=== PATIENT | female | born 1965 | race Caucasian/White ===

== ENCOUNTER 2019-01-30 07:23 | Outpatient (CLI) | payer MEDICAID, SELFPAY ==
[2019-01-30 08:09] LABS: HCT 42.3 % (36.0-46.0); HGB 14.5 g/dL (12.0-15.5); Mean Corp. HGB Concentration 34.3 g/dL (32.0-36.0); Mean Corpuscular Hemoglobin 32.6 pg (27.0-33.0); Mean Corpuscular Volume 95.1 fL (80-95); Mean Platelet Volume 9.3 fL (8.0-11.0); Platelet Count 300 x1000/uL (130-400); RBC 4.45 m/cumm (4.00-5.20); RBC Distribution Width 12.8 % (11.7-14.6); White Blood Cell Count 8.57 k/cumm (4.4-10.8)
[2019-01-30 09:37] LABS: ALT 49 U/L (12-78); AST 22 U/L (15-37); Albumin 3.8 g/dL (3.4-5.0); Alkaline Phosphatase 77 U/L (46-116); Anion Gap 9.4 mmol/L (3-11); BUN 17 mg/dL (7-18); Bilirubin, Total 0.4 mg/dL (0.2-1.0); CO2 28.6 mmol/L (21.0-32.0); CREATININE 0.85 mg/dL (0.55-1.02); Calcium 9.2 mg/dL (8.5-10.1); Chloride 101 mmol/L (98-107); Glucose 121 mg/dL (70-100); Sodium 139 mmol/L (136-145); TSH (W/Ref FT4) 6.96 uIU/mL (0.358-3.74); Total Protein 7.1 g/dL (6.4-8.2)
[2019-01-30 09:56] LABS: FREE T4 1.07 ng/dL (0.76-1.46)
[2019-02-02 10:30] LABS: FSH 14.7 mIU/ml; LH 15.5 mIU/ml
== END 2019-01-30 07:43 ==
PROVIDERS: PCP Family Medicine; Visit Provider Family Medicine
DX: E03.9 Hypothyroidism, unspecified (principal); I10 Essential (primary) hypertension; N93.8 Other specified abnormal uterine and vaginal bleeding; Z00.00 Encounter for general adult medical examination without abnormal findings
CPT/HCPCS: 36415; 80053; 85027; 83001; 83002; 84439; 84443

== ENCOUNTER 2019-03-18 17:01 | Outpatient (CLI) | payer MEDICAID, SELFPAY ==
--- NOTE | 2019-03-18 16:13 | DI.RAD_ITS ---
SYMPTOM/DIAGNOSIS: PAIN TOE LT FOOT, M79.675 LEFT FOOT: The bony structures are normally mineralized. There are apparent flexion deformities of the second through fourth toes. There are moderate interphalangeal degenerative changes. Mild DJD involving the first metatarsal phalangeal joint is noted. A calcaneal spur is identified. There is no evidence of a fracture or dislocation. RIGHT FOOT: The bony structures are normally mineralized. There are mild degenerative changes involving the first metatarsal phalangeal joint. Note is made of a small calcaneal spur. There is no evidence of a fracture or dislocation.
== END 2019-03-18 17:21 ==
PROVIDERS: PCP Family Medicine; Visit Provider Podiatrist Foot & Ankle Surgery
DX: M79.675 Pain in left toe(s) (principal); M79.671 Pain in right foot; M79.672 Pain in left foot; M19.071 Primary osteoarthritis, right ankle and foot; M77.31 Calcaneal spur, right foot; M19.072 Primary osteoarthritis, left ankle and foot; M77.32 Calcaneal spur, left foot
CPT/HCPCS: 73630

== ENCOUNTER 2019-04-03 20:44 | Emergency (ER) | payer MEDICAID, SELFPAY ==
[2019-04-03 20:51] VITALS: BP 160/96; PULSE 86; RESP 20; TEMP 36.7; O2SAT 96
--- NOTE | 2019-04-03 20:59 | ED.GENADUL_ITS ---
Discharge Plan Disposition Patient Disposition: HOME Condition: Stable Discharge Details Chief Complaint: DentalOral Clinical Impression: Dental infection Primary Care Provider: Hanna Mcneill ED Provider: Zachary Montesinos Home Meds and New Rx's Prescriptions: New clindamycin HCl 150 mg capsule 450 mg PO TID 7 Days Qty: 63 RF: 0 Continued cephalexin 500 mg capsule 500 mg PO DAILY RF: 0 ibuprofen 800 mg tablet 800 mg PO BID Qty: 60 RF: 2 verapamil 120 MG tablet extended release 120 mg PO DAILY Qty: 90 RF: 12 levothyroxine 200 MCG tablet 200 mcg PO DAILY Qty: 90 RF: 12 cyanocobalamin (vitamin B-12) [Vitamin B-12] 100 MCG tablet 100 mcg PO DAILY Qty: 90 RF: 11 furosemide 20 mg tablet 20 mg PO DAILY PRN (Reason: edema) Qty: 90 RF: 0 levothyroxine 25 mcg capsule 25 mcg PO DAILY Qty: 90 RF: 4 acetaminophen 500 MG tablet 1,000 mg PO BID PRNRF: 0 losartan 25 mg Tablet PO DAILY RF: 0 Discharge Instructions Instructions: Toothache (ED) Additional Instructions: follow up with the dentist of your choice you can take 1000mg tylenol and 600mg ibuprofen every 6 horus as needed for pain if you have difficulty breathing or inability to swallow liquids return to the emergency department Medical Decision Making 53 yo female who has hx of a right broken mid molar tooth on the lower jaw comes in with pain in this tooth since tonight. Denies fever,s difficulty breathing or swalling. She is in no distresson exam and has severe erosion of above stated tooth with pain with palpation, no visible abscess. No submandibular swelling pain over hyoid or other findings to suggest ludwigs, epilgotiits or rpa at this time, advised f/u with dentist and return precautions given. Will also start on abx Differential Diagnosis abscess, pupitis HPI General Mode of arrival: ambulatory . Date/Time Provider Initiated Documentation: 04/03/19 20:46 . Limitations to Documentation: no limitations . Information obtained by: patient . History of Present Illness 53 year old F presents to the emergency department with the chief complaint of tooth pain, described as moderate, Quality is described as aching, and is localized to the mouth. Patient reports no radiation. Patient started experiencing this hour(s) (3) and it has been constant. No relieving factors improve symptom(s), No exacerbating factors reported . Patient notes no other symptoms.. Patient did receive the following treatments prior to arrival, none Related Data Home Medications Medication Instructions Recorded Confirmed acetaminophen 1,000 mg PO BID PRN 09/02/16 04/03/19 levothyroxine 200 mcg PO DAILY #90 tab-cap 04/09/18 04/03/19 verapamil 120 mg PO DAILY #90 tab-cap 04/09/18 04/03/19 cyanocobalamin (vitamin B-12) 100 mcg PO DAILY #90 tab 04/28/18 04/03/19 [Vitamin B-12] furosemide 20 mg tablet 20 mg PO DAILY PRN #90 tab-cap 10/07/18 04/03/19 cephalexin 500 mg capsule 500 mg PO DAILY cap 11/24/18 04/03/19 levothyroxine 25 mcg capsule 25 mcg PO DAILY #90 cap 02/05/19 04/03/19 ibuprofen 800 mg tablet 800 mg PO BID #60 tab 03/09/19 04/03/19 clindamycin HCl 450 mg PO TID 7 Days #63 cap 04/03/19 losartan mg PO DAILY 04/03/19 Previous Rx's Medication Instructions Recorded levothyroxine 200 mcg PO DAILY #90 tab-cap 04/09/18 verapamil 120 mg PO DAILY #90 tab-cap 04/09/18 cyanocobalamin (vitamin B-12) 100 mcg PO DAILY #90 tab 04/28/18 [Vitamin B-12] furosemide 20 mg tablet 20 mg PO DAILY PRN #90 tab-cap 10/07/18 levothyroxine 25 mcg capsule 25 mcg PO DAILY #90 cap 02/05/19 ibuprofen 800 mg tablet 800 mg PO BID #60 tab 03/09/19 clindamycin HCl 450 mg PO TID 7 Days #63 cap 04/03/19 Allergies Allergy/AdvReac Type Severity Reaction Status Date / Time varenicline Allergy Intermediate SKIN RASH Verified 04/03/19 20:53 amlodipine AdvReac Mild edema Verified 04/03/19 20:53 Penicillins AdvReac Other (See Verified 04/03/19 20:53 Comment) General Stated Complaint: DentalOral SARAY: 4 Review of Systems Review of Systems All systems reviewed & are unremarkable except as noted in HPI and below Constitutional Denies chills and Denies fever(s) ENT Denies change in voice Cardiovascular Denies chest pain and Denies dyspnea Respiratory Denies cough and Denies dyspnea Gastrointestinal Denies abdominal pain, Denies nausea and Denies vomiting Integumentary/Breasts Denies rash [facility] Medical History 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) Depressive disorder (Chronic 05/09/10) Essential hypertension (Chronic 11/13/13) Foot pain, bilateral (Chronic 11/04/17) Gout (Chronic 09/14/14) Hypothyroidism (Chronic 08/13/13) 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) Pilonidal cyst (Chronic 01/21/18) Plantar fascia syndrome (Chronic 05/03/16) Primary malignant neoplasm of thyroid gland (Chronic 08/13/13) Smoker (Chronic) Tinea corporis (Chronic 07/14/15) Vaginal atrophy (Chronic 11/04/17) Abdominal pain, left upper quadrant (Resolved) Annual physical exam (Resolved 09/06/15) Cellulitis of left lower leg (Resolved) Dysfunctional uterine bleeding (Resolved) Herpes simplex (Resolved) Herpes zoster (Resolved 03/19/13) Ingrown toenail (Resolved) Left hip pain (Resolved) Onychomycosis (Resolved) Papillary thyroid carcinoma (Resolved) Rash of unknown cause (Resolved) Essential hypertension Malignant neoplasm of thyroid gland Smoker Surgical History H/O eye surgery (Resolved) H/O surgical procedure (Resolved) EYE Excision, Pilonidal Cyst (02/20/18) Lobectomy (~08/2007) Family History Mother Diabetes Essential hypertension Heart disease Father Diabetes Essential hypertension Heart disease Hyperlipidemia Sister Diabetes Brother Diabetes Essential hypertension Brother Diabetes Essential hypertension Social History Smoking/Tobacco Use Status: Current every day Tobacco Type: cigarettes Second Hand Exposure: Yes Alcohol Intake: current Alcohol Intake frequency: a few times a month Alcohol type: hard liquor Drug use: Never Substance use type: does not use Household members: family Pets and animals: Yes Pets and animals: dog(s) Sexually active: Yes Current gender identity: female What is your relationship status?: living with partner How often do you talk on the phone with friends or family?: once per week How often do you get together with friends or relatives?: once per week How often do you attend mu-ism or taoism services?: decline to answer Do you belong to any clubs or organized social groups?: yes Panel score (0-1 are the most socially isolated patients): 2 Duration: 30-45 minutes/day Binta/Yarsanism: None Special binta needs: No Do you feel safe at home: Yes Do you feel safe in your relationship?: Yes Exam Const General: no acute distress Orientation: alert HENMT Head: normal to inspection Ears: external ears normal General nose exam: external nose normal Mouth: moist mucous membranes Eyes General: appearance normal, both eyes and all related structures Neck Neck: normal visual inspection Resp Effort & Inspection: normal respiratory effort and able to speak in complete sentences Cardio Rate: regular rate Skin General skin exam: no rashes or lesions noted Neuro General: alert and oriented x3 Extrem General: normal to inspection Psych Mental Status: mental status grossly normal Course Vital Signs Temperature 36.7 C 04/03/19 20:51 Pulse 86 04/03/19 20:51 Respiratory Rate 04/03/19 20:51 Blood Pressure 160/96 H 04/03/19 20:51 Pulse Oximetry 96 04/03/19 20:51 Temperature 36.7 C 04/03/19 20:51 Temperature Source Temporal Artery Scan 04/03/19 20:51 Pulse 86 04/03/19 20:51 Respiratory Rate 04/03/19 20:51 Respiratory Effort Non-Labored 04/03/19 20:51 Blood Pressure 160/96 H 04/03/19 20:51 Blood Pressure Position Sitting 04/03/19 20:51 Pulse Oximetry 96 04/03/19 20:51 Oxygen Delivery Method Room Air 04/03/19 20:51 Oxygen Flow Rate 0 04/03/19 20:51 Pain Level 04/03/19 20:51
[2019-04-03 21:11] VITALS: BP 160/96; PULSE 86; RESP 20; TEMP 36.7; O2SAT 96
[2019-04-03] MEDS: Clindamycin 150 MG CAP 450 MG PO (21:11)
== END 2019-04-03 21:11 | disposition home or self-care (01) ==
PROVIDERS: Emergency Provider Emergency Medicine; PCP Family Medicine
DX: K04.7 Periapical abscess without sinus (principal)
CPT/HCPCS: 99283

== ENCOUNTER 2019-07-16 02:14 | Emergency (ER) | payer MEDICAID, SELFPAY ==
[2019-07-16 02:19] VITALS: BP 218/93; PULSE 77; RESP 20; TEMP 36.8; O2SAT 99
--- NOTE | 2019-07-16 02:20 | W.ED.GENAD ---
Discharge Plan Disposition Patient Disposition: HOME Condition: Good Discharge Details Chief Complaint: DentalOral Clinical Impression: Dental infection, Essential hypertension Primary Care Provider: Hanna Mcneill ED Provider: Jacky Alves [place] Meds and New Rx's Prescriptions: New clindamycin HCl [Cleocin HCl] 150 mg capsule 450 mg PO TID Qty: 63 RF: 0 benzocaine 20 % gel 1 applic MM QID PRN (Reason: dental pain) Qty: 30 RF: 0 Continued cephalexin 500 mg capsule 500 mg PO DAILY RF: 0 ibuprofen 800 mg tablet 800 mg PO BID Qty: 60 RF: 2 diazepam 10 mg tablet 10 mg PO DAILY PRN (Reason: anxiety) Qty: 20 RF: 0 furosemide 20 mg tablet 20 mg PO DAILY PRN (Reason: edema) Qty: 90 RF: 0 levothyroxine 25 mcg capsule 25 mcg PO DAILY Qty: 90 RF: 4 verapamil 120 mg tablet extended release 120 mg PO DAILY Qty: 90 RF: 12 levothyroxine 200 mcg tablet 200 mcg PO DAILY Qty: 90 RF: 12 acetaminophen 500 MG tablet 1,000 mg PO BID PRNRF: 0 losartan 25 mg Tablet 25 mg PO DAILY RF: 0 Discharge Instructions Additional Instructions: Alternate ibuprofen and acetaminophen for pain. Use the benzocaine gel for any residual pain. Take antibiotic as directed. Contact your dentist for follow-up. Return to ED for fevers, increasing face pain and swelling, difficulty breathing, inability to swallow. Blood pressure is quite elevated tonight. Please monitor at home and follow-up with primary care if continues to be high. Return to ED for any chest pain, shortness of breath, neurologic changes. Referrals: Hanna Mcneill [place], [place] [Primary Care Provider] - Medical Decision Making Patient likely with recurrent dental infection. We will restart her on clindamycin which worked up previously. She will use ibuprofen and acetaminophen in alternating fashion. Will give 20% benzocaine to apply to the gum area every 3-4 hours. She will need to follow-up with her dentist. Blood pressure quite elevated here. Will need to monitor at home and continue medications and if remains high follow-up with primary care. Medical Records Medical records reviewed: Yes I reviewed the patient's medical records. HPI General Mode of arrival: ambulatory. Date/Time Provider Initiated Documentation: 08/22/19 02:19. Limitations to Documentation: no limitations. Information obtained by: patient, RN notes reviewed and old records reviewed. HPI Narrative: Patient presents to ED with right lower jaw pain from fractured/decayed tooth. She missed an appointment with her dentist recently. She was seen here in March for similar problem. Pain and swelling has returned. No fever. No difficulty breathing. No difficulty swallowing. Related Data Home Medications Medication Instructions Recorded Confirmed acetaminophen 1,000 mg PO BID PRN 09/02/16 05/26/19 furosemide 20 mg tablet 20 mg PO DAILY PRN #90 tab-cap 10/07/18 07/16/19 cephalexin 500 mg capsule 500 mg PO DAILY cap 11/24/18 07/16/19 levothyroxine 25 mcg capsule 25 mcg PO DAILY #90 cap 02/05/19 07/16/19 ibuprofen 800 mg tablet 800 mg PO BID #60 tab 03/09/19 07/16/19 losartan 25 mg PO DAILY 04/03/19 07/16/19 levothyroxine 200 mcg tablet 200 mcg PO DAILY #90 tab-cap 04/15/19 07/16/19 verapamil 120 mg tablet,extended 120 mg PO DAILY #90 tab-cap 04/15/19 07/16/19 release diazepam 10 mg tablet 10 mg PO DAILY PRN #20 tab 05/26/19 07/16/19 benzocaine 1 applic MM QID PRN #30 gm 07/16/19 clindamycin HCl [Cleocin HCl] 450 mg PO TID #63 cap 07/16/19 Previous Rx's Medication Instructions Recorded furosemide 20 mg tablet 20 mg PO DAILY PRN #90 tab-cap 10/07/18 levothyroxine 25 mcg capsule 25 mcg PO DAILY #90 cap 02/05/19 ibuprofen 800 mg tablet 800 mg PO BID #60 tab 03/09/19 levothyroxine 200 mcg tablet 200 mcg PO DAILY #90 tab-cap 04/15/19 verapamil 120 mg tablet,extended 120 mg PO DAILY #90 tab-cap 04/15/19 release diazepam 10 mg tablet 10 mg PO DAILY PRN #20 tab 05/26/19 benzocaine 1 applic MM QID PRN #30 gm 07/16/19 clindamycin HCl [Cleocin HCl] 450 mg PO TID #63 cap 07/16/19 Allergies Allergy/AdvReac Type Severity Reaction Status Date / Time varenicline Allergy Intermediate SKIN RASH Verified 07/16/19 02:23 amlodipine AdvReac Mild edema Verified 07/16/19 02:23 Penicillins AdvReac Other (See Verified 07/16/19 02:23 Comment) General SARAY: 4 Review of Systems Constitutional Denies chills and Denies fever(s) Cardiovascular Denies dyspnea Respiratory Denies dyspnea PFSH Medical History Abdominal pain, left upper quadrant (Resolved) Annual physical exam (Resolved 09/06/15) Cellulitis of left lower leg (Resolved) 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) Depressive disorder (Chronic 05/09/10) Dysfunctional uterine bleeding (Resolved) Essential hypertension (Chronic 11/13/13) Foot pain, bilateral (Chronic 11/04/17) Gout (Chronic 09/14/14) Herpes simplex (Resolved) Herpes zoster (Resolved 03/19/13) Hypothyroidism (Chronic 08/13/13) Ingrown toenail (Resolved) Left hip pain (Resolved) Malignant neoplasm of thyroid gland 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) Onychomycosis (Resolved) Papillary thyroid carcinoma (Resolved) Pilonidal cyst (Chronic 01/21/18) Plantar fascia syndrome (Chronic 05/03/16) Primary malignant neoplasm of thyroid gland (Chronic 08/13/13) Rash of unknown cause (Resolved) Smoker (Chronic) Tinea corporis (Chronic 07/14/15) Vaginal atrophy (Chronic 11/04/17) Surgical History Excision, Pilonidal Cyst (02/20/18) EYE H/O eye surgery (Resolved) H/O surgical procedure (Resolved) Lobectomy (~08/2007) Family History Mother Diabetes Essential hypertension Heart disease Father Diabetes Essential hypertension Heart disease Hyperlipidemia Sister Diabetes Brother Diabetes Essential hypertension Brother Diabetes Essential hypertension Social History Smoking/Tobacco Use Status: Current every day Tobacco Type: cigarettes Second Hand Exposure: Yes Alcohol Intake: current Alcohol Intake frequency: a few times a month Alcohol type: hard liquor Drug use: Never Substance use type: does not use Household members: family Pets and animals: Yes Pets and animals: dog(s) Sexually active: Yes Current gender identity: female What is your relationship status?: living with partner How often do you talk on the phone with friends or family?: once per week How often do you get together with friends or relatives?: once per week How often do you attend restorationist or baptist services?: decline to answer Do you belong to any clubs or organized social groups?: yes Panel score (0-1 are the most socially isolated patients): 2 Duration: 30-45 minutes/day Binta/Moravian: None Special binta needs: No Do you feel safe at home: Yes Do you feel safe in your relationship?: Yes Exam Const General: cooperative, comfortable and no acute distress Orientation: alert and oriented x3 HENMT Head: normocephalic and atraumatic Face and sinus: no erythema and edema on the right mandible (mild swelling of the right mandibular area) Throat: uvula midline Other: Right lower premolar decayed and fractured. Tender to percussion. Mild erythema of the gingiva in this area. No obvious abscess. Resp Effort & Inspection: normal respiratory effort
[2019-07-16 02:44] VITALS: BP 218/93; PULSE 77; RESP 20; O2SAT 99
[2019-07-16] MEDS: Benzocaine 20% Gel 30 GM JAR MM (02:44)
[2019-07-16] MEDS: Clindamycin 150 MG CAP 450 MG PO (02:44)
== END 2019-07-16 02:51 | disposition home or self-care (01) ==
PROVIDERS: Emergency Provider Emergency Medicine; PCP Family Medicine
DX: R68.84 Jaw pain (principal); K04.7 Periapical abscess without sinus; I10 Essential (primary) hypertension
CPT/HCPCS: 99283

== ENCOUNTER 2020-01-04 09:26 | Outpatient (CLI) | payer MEDICAID, SELFPAY | END 2020-01-04 09:46 | PROVIDERS: PCP Family Medicine; Visit Provider Family Medicine | DX: E03.9 Hypothyroidism, unspecified (principal) | CPT/HCPCS: 36415; 84443 ==

== ENCOUNTER 2020-05-19 10:44 | Emergency (ER) | payer MEDICAID, SELFPAY ==
[2020-05-19 11:06] VITALS: BP 145/91; PULSE 84; RESP 16; TEMP 37; O2SAT 96
--- NOTE | 2020-05-19 11:19 | ED.GENADUL_ITS ---
Discharge Plan Disposition Patient Disposition: HOME Condition: Stable Discharge Details Chief Complaint: GenMedical Clinical Impression: Tick bite of left shoulder Primary Care Provider: Hanna Mcneill ED Provider: Julianna Garcia Home Meds and New Rx's Prescriptions: New doxycycline hyclate 100 mg capsule 100 mg PO BID 10 Days Qty: 20 RF: 0 No Action cephalexin 500 mg tablet 500 mg PO BID Qty: 90 RF: 4 levothyroxine 200 mcg tablet 200 mcg PO DAILY Qty: 90 RF: 12 verapamil 120 mg tablet extended release 120 mg PO DAILY Qty: 90 RF: 12 diazepam 10 mg tablet 10 mg PO DAILY PRN (Reason: anxiety) Qty: 20 RF: 0 losartan-hydrochlorothiazide 100-12.5 mg tablet 1 tab PO DAILY Qty: 90 RF: 3 ibuprofen 800 mg tablet 800 mg PO BID Qty: 60 RF: 2 furosemide 20 mg tablet 20 mg PO DAILY PRN (Reason: edema) Qty: 90 RF: 0 acetaminophen 500 MG tablet 1,000 mg PO BID PRNRF: 0 benzocaine 20 % gel 1 applic MM QID PRN (Reason: dental pain) Qty: 30 RF: 0 Discharge Instructions Instructions: Tick Bite (ED) Additional Instructions: Follow up with primary care provider in 3-5 days. Return to ED sooner if any worsening or concerns. Increase oral fluids. Use bacitracin or Neosporin or similar and a Band-Aid for 1 to 2 days. Keep area clean and dry. Take antibiotics as directed. Return if any worsening rash, fever, joint pain or any concerns. Referrals: Hanna Mcneill MD, [place] [Primary Care Provider] - Discharge Data Discharge Date/Time-TO BE ENTERED AT DEPARTURE: 05/19/20 11:53 Medical Decision Making Patient is a 54-year-old female who noticed a tick embedded into her left shoulder approximately 45 minutes prior to arrival. Patient is unsure length of time tick was embedded was outside yesterday. Denies any weakness muscle cramps or any other symptoms. On initial exam there is a tick noted to her left shoulder. 1122: tick removed with tick grabber. Head still remains embedded. Will attempt to get her out with small amount of lidocaine an 18-gauge needle. Will place patient on doxycycline. See above procedure note foreign body removal unsuccessful head remained embedded. Discussed bacitracin and wound care with patient. Prescribed doxycycline twice a day x10 days., Verbalized understanding. This text was generated using Wengo dictation system, please disregard any oddities of phrase or misspellings. HPI General Mode of arrival: ambulatory . Date/Time Provider Initiated Documentation: 05/19/20 11:13 . Limitations to Documentation: no limitations . Information obtained by: patient . HPI Narrative: Patient is a 54-year-old female who noticed a tick embedded into her left shoulder approximately 45 minutes prior to arrival. Patient is unsure length of time tick was embedded was outside yesterday. Denies any weakness muscle cramps or any other symptoms. On initial exam there is a tick noted to her left shoulder. Related Data Home Medications Medication Instructions Recorded Confirmed acetaminophen 1,000 mg PO BID PRN 09/02/16 05/19/20 diazepam 10 mg tablet 10 mg PO DAILY PRN #20 tab 05/26/19 05/19/20 benzocaine 1 applic MM QID PRN #30 gm 07/16/19 05/19/20 losartan 100 1 tab PO DAILY #90 tab 08/28/19 05/19/20 mg-hydrochlorothiazide 12.5 mg tablet cephalexin 500 mg tablet 500 mg PO BID #90 tab 09/01/19 05/19/20 ibuprofen 800 mg tablet 800 mg PO BID #60 tab 10/29/19 05/19/20 levothyroxine 200 mcg tablet 200 mcg PO DAILY #90 tab-cap 01/04/20 05/19/20 verapamil 120 mg tablet,extended 120 mg PO DAILY #90 tab-cap 01/04/20 05/19/20 release furosemide 20 mg tablet 20 mg PO DAILY PRN #90 tab-cap 03/10/20 05/19/20 doxycycline hyclate 100 mg PO BID 10 Days #20 cap 05/19/20 Previous Rx's Medication Instructions Recorded diazepam 10 mg tablet 10 mg PO DAILY PRN #20 tab 05/26/19 benzocaine 1 applic MM QID PRN #30 gm 07/16/19 losartan 100 1 tab PO DAILY #90 tab 08/28/19 mg-hydrochlorothiazide 12.5 mg tablet cephalexin 500 mg tablet 500 mg PO BID #90 tab 09/01/19 ibuprofen 800 mg tablet 800 mg PO BID #60 tab 10/29/19 levothyroxine 200 mcg tablet 200 mcg PO DAILY #90 tab-cap 01/04/20 verapamil 120 mg tablet,extended 120 mg PO DAILY #90 tab-cap 01/04/20 release furosemide 20 mg tablet 20 mg PO DAILY PRN #90 tab-cap 03/10/20 doxycycline hyclate 100 mg PO BID 10 Days #20 cap 05/19/20 Allergies Allergy/AdvReac Type Severity Reaction Status Date / Time varenicline Allergy Intermediate SKIN RASH Verified 05/19/20 11:10 amlodipine AdvReac Mild edema Verified 05/19/20 11:10 Penicillins AdvReac Other (See Verified 05/19/20 11:10 Comment) General Stated Complaint: GenMedical SARAY: 5 Review of Systems Narrative: Constitutional: Negative for weight loss, alert and oriented, well groomed, normal body habitus, appears comfortable. HEENT: Denies trauma, headaches, blurry vision, nasal discharge, sore throat, trouble swallowing. Respiratory: Denies Shortness of breath, cough, hemoptysis. GI: Denies abdominal pain, nausea, vomiting, diarrhea, constipation. Skin: Does have a tic noted to her left shoulder. No surrounding erythema or erythema migrans. Neuro: Denies dizziness, blurry vision, weakness, syncope, headache or facial numbness. [facility] Medical History Abdominal pain, left upper quadrant (Resolved) Spasms; 01/27 Rib/Sternum films Neg Annual physical exam (Resolved 09/06/15) Cellulitis of left lower leg (Resolved) 09/02/16 Cellulitis of left lower leg (Inactive 09/02/16) Chronic cystitis (Inactive) MULTIPLE CYSTS: AXILLA/LEGS/ETC. 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) Onychomycosis (Resolved) toenails 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 Fleming @[facility] [place] History of eye surgery (Inactive) Lobectomy (~08/2007) R LOBE-PUPILLARY CA; DR. FLEMING @ [facility] [place] Family History Mother Diabetes Essential hypertension Heart disease ANEURSYM X 6 Father Diabetes Essential hypertension Heart disease Hyperlipidemia Sister Diabetes Brother Diabetes Essential hypertension Brother Diabetes Essential hypertension Social History Smoking/Tobacco Use Status: Current every day Tobacco Type: cigarettes Second Hand Exposure: Yes Alcohol Intake: never Drug use: Occasionally Substance use type: marijuana Details: occasional edible Household members: family Pets and animals: Yes Pets and animals: dog(s) Sexually active: Yes Current gender identity: female What is your relationship status?: living with partner How often do you talk on the phone with friends or family?: once per week How often do you get together with friends or relatives?: once per week How often do you attend samaritan or scientologist services?: decline to answer Do you belong to any clubs or organized social groups?: yes Panel score (0-1 are the most socially isolated patients): 2 Duration: 30-45 minutes/day Binta/Anglican: None Special binta needs: No Do you feel safe at home: Yes Do you feel safe in your relationship?: Yes Exam Skin General skin exam: no rashes or lesions noted and other (Does have a small appears to be a deer tick embedded to her left shoulder.) Rashes: rashes noted (No surrounding erythema or erythema migrans noted.) Course Vital Signs Vital signs: Vital Signs Temperature 37.0 C 05/19/20 11:06 Pulse 84 05/19/20 11:06 Respiratory Rate 16 05/19/20 11:06 Blood Pressure 145/91 H 05/19/20 11:06 Pulse Oximetry 96 05/19/20 11:06 Temperature 37.0 C 05/19/20 11:06 Temperature Source Oral 05/19/20 11:06 Pulse 84 05/19/20 11:06 Respiratory Rate 16 05/19/20 11:06 Blood Pressure 145/91 H 05/19/20 11:06 Pulse Oximetry 96 05/19/20 11:06 Oxygen Delivery Method Room Air 05/19/20 11:06 Oxygen Flow Rate 0 05/19/20 11:06 Pain Level 0 05/19/20 11:06 Procedures Foreign Body Removal Time Out Performed: no Site: right and upper extremity (Shoulder) Description of foreign body: other (Tick) Sedation/Analgesia: none and other (Small amount of 1% lidocaine, unsuccessful) Technique: removal with forceps Confirmed by:: direct visualization Complications: none (Retained head) Post-procedure exam: awake, alert Neurovascular: normal distal pulse, normal capillary fill and no change from pre-procedure
[2020-05-19] MEDS: Doxycycline Hyclate 100 MG CAP PO (11:39)
== END 2020-05-19 11:53 | disposition home or self-care (01) ==
PROVIDERS: Emergency Provider Registered Nurse Emergency; PCP Family Medicine
DX: S40.262A Insect bite (nonvenomous) of left shoulder, initial encounter (principal); W57.XXXA Bitten or stung by nonvenomous insect and other nonvenomous arthropods, initial encounter; I10 Essential (primary) hypertension
CPT/HCPCS: 99283

== ENCOUNTER 2020-06-23 03:04 | Outpatient (CLI) | payer MEDICAID, SELFPAY ==
[2020-06-23 07:45] LABS: HCT 43.6 % (36.0-46.0); HGB 14.6 g/dL (11.2-15.7); MCH 31.3 pg (27.0-33.0); MCHC 33.5 % (32.0-36.0); MCV 93.6 fL (80-95); MPV 9.2 fL (8.0-11.0); Platelet Count 296 10^3/uL (130-400); RBC 4.66 10^6/uL (3.93-5.22); RDW 12.7 % (11.7-14.6); RDW-SD 43.8 fL; WBC 7.41 10^3/uL (4.4-10.8)
[2020-06-23 08:41] LABS: Iron 82 ug/dL (50-170)
[2020-06-23 08:51] LABS: ALT 53 U/L (14-59); AST 28 U/L (15-37); Albumin 3.9 g/dL (3.4-5.0); Alkaline Phosphatase 78 U/L (46-116); Anion Gap 10.5 mmol/L (3-11); BUN 14 mg/dL (7-18); Bilirubin, Total 0.4 mg/dL (0.2-1.0); CO2 26.5 mmol/L (21.0-32.0); CREATININE 0.75 mg/dL (0.55-1.02); Calcium 9.3 mg/dL (8.5-10.1); Chloride 104 mmol/L (98-107); Ferritin 141 ng/mL (8-252); Glucose 110 mg/dL (74-106); Potassium 4.5 mmol/L (3.5-5.1); Sodium 141 mmol/L (136-145); TSH (W/Ref FT4) 0.26 uIU/mL (0.36-3.74); Total Protein 7.1 g/dL (6.4-8.2)
[2020-06-23 09:01] LABS: Vitamin D 25 Total 23.2 ng/ml (30-100)
[2020-06-23 09:07] LABS: FREE T4 1.54 ng/dL (0.76-1.46)
== END 2020-06-23 03:24 ==
PROVIDERS: PCP Family Medicine; Visit Provider Family Medicine
DX: E03.9 Hypothyroidism, unspecified (principal); F32.9 Major depressive disorder, single episode, unspecified; I10 Essential (primary) hypertension; R06.83 Snoring
CPT/HCPCS: 80053; 82306; 85027; 82728; 83540; 84439; 84443

== ENCOUNTER 2020-07-23 12:04 | Emergency (ER) | payer MEDICAID, SELFPAY ==
[2020-07-23 12:12] VITALS: BP 161/93; PULSE 78; RESP 16; TEMP 36.2; O2SAT 96
--- NOTE | 2020-07-23 12:13 | ED.GENADUL_ITS ---
Discharge Plan Disposition Patient Disposition: HOME Condition: Good Discharge Details Chief Complaint: EarProblem Clinical Impression: Cerumen impaction Primary Care Provider: Hanna Mcneill ED Provider: Emerita Abebe Home Meds and New Rx's Prescriptions: Continued diazepam 10 mg tablet 10 mg PO DAILY PRN (Reason: anxiety) Qty: 20 RF: 0 cephalexin 500 mg tablet 500 mg PO BID Qty: 90 RF: 4 ibuprofen 800 mg tablet 800 mg PO BID Qty: 60 RF: 2 levothyroxine 200 mcg tablet 200 mcg PO DAILY Qty: 90 RF: 12 losartan-hydrochlorothiazide 100-12.5 mg tablet 1 tab PO DAILY Qty: 90 RF: 3 verapamil 240 mg capsule,ext rel. pellets 24 hr 240 mg PO QAM Qty: 90 RF: 5 furosemide 20 mg tablet 20 mg PO DAILY PRN (Reason: edema) Qty: 90 RF: 0 ergocalciferol (vitamin D2) 1,250 mcg (50,000 unit) capsule 50,000 unit PO QWEEK Qty: 13 RF: 4 acetaminophen 500 MG tablet 1,000 mg PO BID PRNRF: 0 benzocaine 20 % gel 1 applic MM QID PRN (Reason: dental pain) Qty: 30 RF: 0 Discharge Instructions Instructions: Cerumen Impaction (ED) Additional Instructions: Please try to avoid Q-tips. Wash your ear in the shower and towel dry. You may use [id number] earwax drops also helps removal, easier. Please monitor for signs infection including redness, warmth, drainage increased pain, fever/chills. If you develop this or other new/worsening symptom please seek care urgently once again. Otherwise, please follow-up with primary care as needed. Referrals: Hanna Mcneill MD, [place] [Primary Care Provider] - Medical Decision Making Patient is a pleasant 54-year-old female presenting today with chief complaint of a clogged right ear. She reports she has had had this happen historically and it was secondary to cerumen impaction. She denies any fevers or chills. No pain. On exam, patient is resting comfortably, appears nontoxic. She is cerumen impaction on the right side is predicted. This was flushed by nursing staff. No evidence of underlying infection on reexamination. Patient is feeling much improved. Hearing has improved. Advise follow-up with primary care as needed. Return precautions discussed. All of her questions and concerns were addressed. HPI General Mode of arrival: ambulatory . Date/Time Provider Initiated Documentation: 07/23/20 12:13 . Limitations to Documentation: no limitations . Information obtained by: patient and RN notes reviewed . History of Present Illness 54 year old F presents to the emergency department with the chief complaint of Right ear clogged, described as mild (denies pain, states difficulty hearing today), Patient reports no radiation. Patient started experiencing this day(s) and it has been constant. No relieving factors improve symptom(s), No exacerbating factors reported . Patient notes no other symptoms.. Patient did receive the following treatments prior to arrival, none Related Data Home Medications Medication Instructions Recorded Confirmed acetaminophen 1,000 mg PO BID PRN 09/02/16 06/14/20 diazepam 10 mg tablet 10 mg PO DAILY PRN #20 tab 05/26/19 07/23/20 benzocaine 1 applic MM QID PRN #30 gm 07/16/19 06/14/20 cephalexin 500 mg tablet 500 mg PO BID #90 tab 06/14/20 07/23/20 furosemide 20 mg tablet 20 mg PO DAILY PRN #90 tab-cap 06/14/20 07/23/20 ibuprofen 800 mg tablet 800 mg PO BID #60 tab 06/14/20 07/23/20 levothyroxine 200 mcg tablet 200 mcg PO DAILY #90 tab-cap 06/14/20 07/23/20 losartan 100 1 tab PO DAILY #90 tab 06/14/20 07/23/20 mg-hydrochlorothiazide 12.5 mg tablet verapamil 240 mg 24 hr 240 mg PO QAM #90 cap 06/14/20 07/23/20 capsule,extended release ergocalciferol (vitamin D2) 1,250 50,000 unit PO QWEEK #13 cap 06/24/20 07/23/20 mcg (50,000 unit) capsule Previous Rx's Medication Instructions Recorded diazepam 10 mg tablet 10 mg PO DAILY PRN #20 tab 05/26/19 benzocaine 1 applic MM QID PRN #30 gm 07/16/19 cephalexin 500 mg tablet 500 mg PO BID #90 tab 06/14/20 furosemide 20 mg tablet 20 mg PO DAILY PRN #90 tab-cap 06/14/20 ibuprofen 800 mg tablet 800 mg PO BID #60 tab 06/14/20 levothyroxine 200 mcg tablet 200 mcg PO DAILY #90 tab-cap 06/14/20 losartan 100 1 tab PO DAILY #90 tab 06/14/20 mg-hydrochlorothiazide 12.5 mg tablet verapamil 240 mg 24 hr 240 mg PO QAM #90 cap 06/14/20 capsule,extended release ergocalciferol (vitamin D2) 1,250 50,000 unit PO QWEEK #13 cap 06/24/20 mcg (50,000 unit) capsule Allergies Allergy/AdvReac Type Severity Reaction Status Date / Time varenicline Allergy Intermediate SKIN RASH Verified 07/23/20 12:20 amlodipine AdvReac Mild edema Verified 07/23/20 12:20 Penicillins AdvReac Other (See Verified 07/23/20 12:20 Comment) General SARAY: 5 Review of Systems Constitutional Constitutional: Reports as per HPI, Denies chills, Denies fever(s) and Denies headache(s) Eyes Eyes: Reports as per HPI, Denies eye discharge and Denies irritation ENT Ears, Nose, Mouth, and Throat: Reports as per HPI and Denies headache(s) Cardiovascular Cardiovascular: Reports as per HPI, Denies chest pain and Denies dyspnea Respiratory Respiratory: Reports as per HPI, Denies cough and Denies dyspnea Integumentary/Breasts Skin/Breast: Reports as per HPI and Denies rash Neurologic Neurologic: Reports as per HPI and Denies headache(s) [facility] Medical History Abdominal pain, left upper quadrant (Resolved) Spasms; 01/27 Rib/Sternum films Neg Annual physical exam (Resolved 09/06/15) Cellulitis of left lower leg (Resolved) 09/02/16 Cellulitis of left lower leg (Inactive 09/02/16) Chronic cystitis (Inactive) MULTIPLE CYSTS: AXILLA/LEGS/ETC. 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) Onychomycosis (Resolved) toenails 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 Fleming @[facility] [place] History of eye surgery (Inactive) Lobectomy (~08/2007) R LOBE-PUPILLARY CA; DR. FLEMING @ [facility] [place] Family History (Updated 06/14/20 @ 16:31 by Khushbu Noe) Mother , 77 Diabetes Essential hypertension Heart disease ANEURSYM X 6 Father , 67 Diabetes Essential hypertension Heart disease Hyperlipidemia Sister Diabetes Brother Diabetes Essential hypertension Depression Brother Diabetes Essential hypertension Social History Smoking/Tobacco Use Status: Current every day Tobacco Type: cigarettes Second Hand Exposure: Yes Drug use: Occasionally Substance use type: marijuana Details: occasional edible Household members: family Do you need help understanding health information?: Never Pets and animals: Yes Pets and animals: dog(s) Sexually active: Yes Do you think of yourself as: straight/heterosexual Current gender identity: female What is your relationship status?: How often do you talk on the phone with friends or family?: once per week How often do you get together with friends or relatives?: twice per week How often do you attend sabianism or rastafari services?: 1-3 times per year Do you belong to any clubs or organized social groups?: yes Panel score (0-1 are the most socially isolated patients): 3 Duration: 15-30 minutes/day Frequency: 3-4 times per week Binta/Roman Catholic: Bahai Special binta needs: No Seatbelt use: always Drive intox or ride w/intox six horse hitch driver: No Do you feel safe at home: Yes Do you feel safe in your relationship?: Yes Exam Const General: cooperative, healthy appearing, comfortable, no acute distress, well developed and well groomed Nutritional Appearance: average body habitus and well nourished Orientation: alert and awake [facility] Head: normal to inspection, normocephalic and atraumatic Ears: hearing grossly normal bilaterally, right TM abnormal (cerumen impaction noted on right side) and TM normal on the left General nose exam: external nose normal and nares normal Face and sinus: normal facial exam, sinuses nontender and face symmetric Mouth: oral mucosae normal, lip normal, tongue normal, oropharynx normal and moist mucous membranes Teeth and gingiva: dentition normal Throat: posterior oropharynx normal, tonsils normal and uvula midline Eyes General: appearance normal, both eyes and all related structures Neck Neck: normal visual inspection, full ROM, no lymphadenopathy and no meningeal signs Resp Effort & Inspection: normal respiratory effort, able to speak in complete sentences and no respiratory distress Skin General skin exam: no rashes or lesions noted Neuro General: patient alert and patient awake Cognition: normal cognition Speech: speech normal Gait: normal gait Psych Appearance: grossly normal and well kempt Mental Status: mental status grossly normal Speech and Movement: speech and movement normal
--- NOTE | 2020-07-23 12:47 | NUR.NOTE ---
Right ear irrigated with warm water and perixide with return of large amount of wax. States it feels much better.Nursing Note:
== END 2020-07-23 12:54 | disposition home or self-care (01) ==
PROVIDERS: Emergency Provider Physician Assistant; PCP Family Medicine
DX: H61.21 Impacted cerumen, right ear (principal); I10 Essential (primary) hypertension
CPT/HCPCS: 69209; 99282

== ENCOUNTER 2020-09-03 20:17 | Emergency (ER) | payer MEDICAID, SELFPAY ==
[2020-09-03 20:24] VITALS: BP 142/72; PULSE 75; RESP 20; TEMP 36.2; O2SAT 95
--- NOTE | 2020-09-03 20:30 | W.ED.GENAD ---
Discharge Plan Disposition Patient Disposition: HOME Condition: Improving Discharge Details Clinical Impression: Cerumen impaction Primary Care Provider: Hanna Mcneill ED Provider: Yuki Regalado Home Meds and New Rx's Prescriptions: Continued diazepam 10 mg tablet 10 mg PO DAILY PRN (Reason: anxiety) Qty: 20 RF: 0 cephalexin 500 mg tablet 500 mg PO BID Qty: 90 RF: 4 ibuprofen 800 mg tablet 800 mg PO BID Qty: 60 RF: 2 levothyroxine 200 mcg tablet 200 mcg PO DAILY Qty: 90 RF: 12 losartan-hydrochlorothiazide 100-12.5 mg tablet 1 tab PO DAILY Qty: 90 RF: 3 verapamil 240 mg capsule,ext rel. pellets 24 hr 240 mg PO QAM Qty: 90 RF: 5 furosemide 20 mg tablet 20 mg PO DAILY PRN (Reason: edema) Qty: 90 RF: 0 ergocalciferol (vitamin D2) 1,250 mcg (50,000 unit) capsule 50,000 unit PO QWEEK Qty: 13 RF: 4 acetaminophen 500 MG tablet 1,000 mg PO BID PRNRF: 0 benzocaine 20 % gel 1 applic MM QID PRN (Reason: dental pain) Qty: 30 RF: 0 Discharge Instructions Instructions: Cerumen Impaction (ED) Additional Instructions: Please try to avoid Q-tips. Wash your ear in the shower and towel dry. You may use [id number] earwax drops also helps removal, easier. Please monitor for signs infection including redness, warmth, drainage increased pain, fever/chills. Referrals: Hanna Mcneill MD, [place] [Primary Care Provider] - Medical Decision Making Patient with cerumen in ear canal bilaterally TMs not visualized. Irrigated by nursing with good effect. HPI General Date/Time Provider Initiated Documentation: 09/03/20 20:29. Limitations to Documentation: no limitations. Information obtained by: patient. HPI Narrative: Patient returns to the emergency department again for now left cerumen impaction. She was just seen here 2 weeks ago for right cerumen impaction was flushed which did improve her hearing she has had no fevers chills or issues since her last irrigation Related Data Home Medications Medication Instructions Recorded Confirmed acetaminophen 1,000 mg PO BID PRN 09/02/16 06/14/20 diazepam 10 mg tablet 10 mg PO DAILY PRN #20 tab 05/26/19 07/23/20 benzocaine 1 applic MM QID PRN #30 gm 07/16/19 06/14/20 cephalexin 500 mg tablet 500 mg PO BID #90 tab 06/14/20 07/23/20 furosemide 20 mg tablet 20 mg PO DAILY PRN #90 tab-cap 06/14/20 07/23/20 ibuprofen 800 mg tablet 800 mg PO BID #60 tab 06/14/20 07/23/20 levothyroxine 200 mcg tablet 200 mcg PO DAILY #90 tab-cap 06/14/20 07/23/20 losartan 100 1 tab PO DAILY #90 tab 06/14/20 07/23/20 mg-hydrochlorothiazide 12.5 mg tablet verapamil 240 mg 24 hr 240 mg PO QAM #90 cap 06/14/20 07/23/20 capsule,extended release ergocalciferol (vitamin D2) 1,250 50,000 unit PO QWEEK #13 cap 06/24/20 07/23/20 mcg (50,000 unit) capsule Previous Rx's Medication Instructions Recorded diazepam 10 mg tablet 10 mg PO DAILY PRN #20 tab 05/26/19 benzocaine 1 applic MM QID PRN #30 gm 07/16/19 cephalexin 500 mg tablet 500 mg PO BID #90 tab 06/14/20 furosemide 20 mg tablet 20 mg PO DAILY PRN #90 tab-cap 06/14/20 ibuprofen 800 mg tablet 800 mg PO BID #60 tab 06/14/20 levothyroxine 200 mcg tablet 200 mcg PO DAILY #90 tab-cap 06/14/20 losartan 100 1 tab PO DAILY #90 tab 06/14/20 mg-hydrochlorothiazide 12.5 mg tablet verapamil 240 mg 24 hr 240 mg PO QAM #90 cap 06/14/20 capsule,extended release ergocalciferol (vitamin D2) 1,250 50,000 unit PO QWEEK #13 cap 06/24/20 mcg (50,000 unit) capsule Allergies Allergy/AdvReac Type Severity Reaction Status Date / Time varenicline Allergy Intermediate SKIN RASH Verified 07/23/20 12:20 amlodipine AdvReac Mild edema Verified 07/23/20 12:20 Penicillins AdvReac Other (See Verified 07/23/20 12:20 Comment) General Stated Complaint: EarProblem SARAY: 4 Review of Systems All systems reviewed & are unremarkable except as noted in HPI and below Constitutional Constitutional: Denies fever(s) ENT Ears, Nose, Mouth, and Throat: Denies dizziness, Denies ear discharge, Denies otalgia and Reports hearing loss (Left) Neurologic Neurologic: Denies dizziness [facility] Medical History (Updated 09/03/20 @ 20:34 by Yuki Regalado NP) Abdominal pain, left upper quadrant Spasms; 01/27 Rib/Sternum films Neg Annual physical exam (09/06/15) Cellulitis of left lower leg 09/02/16 Cellulitis of left lower leg (09/02/16) Chronic cystitis MULTIPLE CYSTS: AXILLA/LEGS/ETC. 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 [place] of eye surgery Lobectomy (~08/2007) R LOBE-PUPILLARY CA; [place] [facility] [place] Family History (Updated 06/14/20 @ 16:31 by Khushbu Noe) Mother , 77 Diabetes Essential hypertension Heart disease ANEURSYM X 6 Father , 67 Diabetes Essential hypertension Heart disease Hyperlipidemia Sister Diabetes Brother Diabetes Essential hypertension Depression Brother Diabetes Essential hypertension Social History Smoking/Tobacco Use Status: Current every day Tobacco Type: cigarettes Second Hand Exposure: Yes Alcohol Intake: never Drug use: Current Sobriety Substance use type: marijuana Details: occasional edible Household members: family Do you need help understanding health information?: Never Pets and animals: Yes Pets and animals: dog(s) Sexually active: Yes Do you think of yourself as: straight/heterosexual Current gender identity: female What is your relationship status?: How often do you talk on the phone with friends or family?: once per week How often do you get together with friends or relatives?: twice per week How often do you attend yazidi or baptist services?: 1-3 times per year Do you belong to any clubs or organized social groups?: yes Panel score (0-1 are the most socially isolated patients): 3 Duration: 15-30 minutes/day Frequency: 3-4 times per week Binta/Worship: Sabianism Special binta needs: No Seatbelt use: always 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 Do you feel safe at home: Yes Do you feel safe in your relationship?: Yes Exam HENPA Head: normal to inspection, normocephalic and atraumatic Ears: external ears normal and unable to visualize TM bilaterally (Cerumen impaction) Course Vital Signs Vital signs: Vital Signs Temperature 36.2 C L 09/03/20 20:24 Pulse 75 09/03/20 20:24 Respiratory Rate 20 09/03/20 20:24 Blood Pressure 142/72 H 09/03/20 20:24 Pulse Oximetry 95 09/03/20 20:24 Temperature 36.2 C L 09/03/20 20:24 Temperature Source Tympanic 09/03/20 20:24 Pulse 75 09/03/20 20:24 Respiratory Rate 20 09/03/20 20:24 Respiratory Effort 09/03/20 20:27 Blood Pressure 142/72 H 09/03/20 20:24 Pulse Oximetry 95 09/03/20 20:24 Oxygen Delivery Method Room Air 09/03/20 20:24 Oxygen Flow Rate 0 09/03/20 20:24 Pain Level 1 09/03/20 20:27
== END 2020-09-03 20:50 | disposition home or self-care (01) ==
LOC: ER 21:19
PROVIDERS: Emergency Provider Nurse Practitioner Acute Care; PCP Family Medicine
DX: H61.22 Impacted cerumen, left ear (principal); I10 Essential (primary) hypertension
CPT/HCPCS: 69210; 99282; 99283

== ENCOUNTER 2021-01-11 03:21 | Outpatient (CLI) | payer MEDICAID, SELFPAY ==
[2021-01-11 17:08] LABS: Hemoglobin A1C 6.2 % (<5.7)
[2021-01-11 17:35] LABS: TSH (W/Ref FT4) 0.17 uIU/mL (0.36-3.74)
[2021-01-11 17:52] LABS: FREE T4 1.45 ng/dL (0.76-1.46)
== END 2021-01-11 03:22 | disposition home or self-care (01) ==
LOC: LBO 03:21
PROVIDERS: PCP Family Medicine; Visit Provider Family Medicine
DX: E11.9 Type 2 diabetes mellitus without complications (principal); E03.9 Hypothyroidism, unspecified
CPT/HCPCS: 36415; 83036; 84439; 84443

== ENCOUNTER 2021-06-19 11:43 | Outpatient (REF) | payer MEDICAID, SELFPAY ==
--- NOTE | 2021-06-19 09:30 | PAPFT_PTH ---
PATIENT: Chanelle Arnold LOC: [facility] U#:[id number] AGE/SX: 55/F ROOM: RE06/19/[address]: Hanna Mcneill MD, [place] : 1965 BED: DIS: 06/19/2021 SPEC #: [id number] RECD: 06/19/21 12:58 STATUS: KYLE REQ #: [id number] MANNIE: 06/19/21 09:[address]: Hanna Mcneill DEPT: [facility] Cytology RECD BY: Lina David Tissues: 1 - CX/ENDOCX FOR PAP SMEARS Procedures: PAP THIN PREP/UVM Screening HPV DNA PROBE Comments: [id number]
== END 2021-06-19 11:44 | disposition home or self-care (01) ==
LOC: LBN 11:43
PROVIDERS: PCP Family Medicine; Visit Provider Family Medicine
DX: Z12.4 Encounter for screening for malignant neoplasm of cervix (principal); Z11.51 Encounter for screening for human papillomavirus (HPV)
CPT/HCPCS: 88142; 87624

== ENCOUNTER 2021-07-26 01:55 | Outpatient (CLI) | payer MEDICAID, SELFPAY ==
--- NOTE | 2021-07-26 08:45 | DI.MAMMO_ITS ---
Exam(s) MAMMO SCREENING EXAM: MAMMO SCREENING CLINICAL HISTORY: screening,Z12.39 TECHNIQUE: Mammograms were interpreted according to the usual protocol including computer analysis w [employer] CAD system, tomosynthesis and C-view imaging. COMPARISON: 2012 through 2018 FINDINGS: The breasts are composed of heterogeneously dense fibroglandular densities, Breast Density category C . No suspicious masses or suspicious microcalcifications are seen. No skin thickening or abnormal axillary lymph nodes are seen. There has been no significant change from prior exams. IMPRESSION: BI-RADS Category 1, Negative mammogram. Yearly screening mammography is recommended. Breast Density Category C, heterogeneously Dense. The mammogram demonstrates the patient's breast tissue is dense. Dense breast tissue is very common a nd is not abnormal but dense breast tissue can make it harder to find cancer on a mammogram. Also, de nse breast tissue may increase breast cancer risk. This information about the result of the mammogram report was provided to the patient to raise their awareness. Use this report when you speak with the patient about their risks for breast cancer, which includes their family history. At that time, you may recommend additional screening tests (Ultrasound or MRI) as they might be useful based on their r isk. A negative radiographic report should not delay biopsy if a dominant or clinically suspicious mass is present. Up to ten percent of cancers are not identified on mammography. A negative report may reinforce clinical impression. Adenosis and dense breasts may obscure an underlying neoplasm. False positive reports average 6 to 10%.
== END 2021-07-26 02:15 ==
PROVIDERS: PCP Family Medicine; Visit Provider Family Medicine
DX: Z12.31 Encounter for screening mammogram for malignant neoplasm of breast (principal)
CPT/HCPCS: 77063; 77067

== ENCOUNTER 2021-07-26 02:59 | Outpatient (CLI) | payer MEDICAID, SELFPAY ==
[2021-07-26 16:29] LABS: Hemoglobin A1C 6.1 % (<5.7)
[2021-07-26 17:06] LABS: ALT 40 U/L (14-59); AST 19 U/L (15-37); Albumin 4.1 g/dL (3.4-5.0); Alkaline Phosphatase 81 U/L (46-116); Anion Gap 9.8 mmol/L (3-11); BUN 23 mg/dL (7-18); Bilirubin, Total 0.2 mg/dL (0.2-1.0); CO2 25.2 mmol/L (21.0-32.0); CREATININE 1.2 mg/dL (0.55-1.02); Calcium 9.2 mg/dL (8.5-10.1); Chloride 106 mmol/L (98-107); Estimated GFR 46.99 (mL/min/1.73m2); Glucose 129 mg/dL (74-106); Potassium 3.7 mmol/L (3.5-5.1); Sodium 141 mmol/L (136-145); TSH (W/Ref FT4) 0.31 uIU/mL (0.36-3.74); Total Protein 7.1 g/dL (6.4-8.2); Uric Acid 7.9 mg/dL (2.6-6.0)
[2021-07-26 17:32] LABS: FREE T4 1.36 ng/dL (0.76-1.46)
[2021-07-26 17:47] LABS: Calculated LDL 96 mg/dL (<100); Cholesterol 203 mg/dL (<200); HDL Cholesterol 33 mg/dL (40-60); Triglyceride 373 mg/dL (<150)
[2021-07-27 01:15] LABS: Vitamin D 25 Total 35.2 ng/mL (30-100)
== END 2021-07-26 03:00 | disposition home or self-care (01) ==
LOC: LBO 02:59
PROVIDERS: PCP Family Medicine; Visit Provider Family Medicine
DX: I10 Essential (primary) hypertension (principal); E11.9 Type 2 diabetes mellitus without complications; C73 Malignant neoplasm of thyroid gland; E55.9 Vitamin D deficiency, unspecified; Z87.39 Personal history of other diseases of the musculoskeletal system and connective tissue; Z00.00 Encounter for general adult medical examination without abnormal findings
CPT/HCPCS: 36415; 80053; 80061; 82306; 83036; 84439; 84443; 84550

== ENCOUNTER 2022-07-02 10:31 | Outpatient (REF) | payer MEDICAID, SELFPAY ==
[2022-07-04 17:17] LABS: COVID-19 RT-PCR UVMMC Result Positive (Negative)
== END 2022-07-02 10:32 | disposition home or self-care (01) ==
LOC: LBN 10:31
PROVIDERS: PCP Family Medicine; Visit Provider Nurse Practitioner Family
DX: Z20.822 Contact with and (suspected) exposure to COVID-19 (principal)
CPT/HCPCS: U0003

== ENCOUNTER 2022-09-21 10:47 | Outpatient (CLI) | payer MEDICAID, SELFPAY ==
[2022-09-21 13:52] LABS: ALT 25 U/L (14-59); AST 16 U/L (15-37); Albumin 3.8 g/dL (3.4-5.0); Alkaline Phosphatase 80 U/L (46-116); Anion Gap 9.2 mmol/L (3-11); BUN 15 mg/dL (7-18); Bilirubin, Total 0.4 mg/dL (0.2-1.0); CO2 27.8 mmol/L (21.0-32.0); CREATININE 0.8 mg/dL (0.55-1.02); Calcium 8.9 mg/dL (8.5-10.1); Calculated LDL 67 mg/dL (<100); Chloride 105 mmol/L (98-107); Cholesterol 176 mg/dL (<200); Estimated GFR 86.96 (mL/min/1.73m2); Glucose 105 mg/dL (74-106); HDL Cholesterol 45 mg/dL (40-60); Potassium 3.8 mmol/L (3.5-5.1); Sodium 142 mmol/L (136-145); TSH (W/Ref FT4) 0.15 uIU/mL (0.36-3.74); Total Protein 7.1 g/dL (6.4-8.2); Triglyceride 323 mg/dL (<150)
[2022-09-21 14:10] LABS: FREE T4 1.46 ng/dL (0.76-1.46)
[2022-09-21 14:30] LABS: Vitamin D 25 Total 40.7 ng/mL (30-100)
[2022-09-21 22:17] LABS: Thyroglobulin Antibody <15 U/mL (<=60)
== END 2022-09-21 10:48 | disposition home or self-care (01) ==
LOC: LBO 10:49
PROVIDERS: PCP Family Medicine; Visit Provider Family Medicine
DX: C73 Malignant neoplasm of thyroid gland (principal); E03.9 Hypothyroidism, unspecified; E55.9 Vitamin D deficiency, unspecified; I10 Essential (primary) hypertension
CPT/HCPCS: 36415; 80053; 80061; 82306; 84439; 84443; 86800

== ENCOUNTER 2022-11-24 12:28 | Emergency (ER) | payer MEDICAID, SELFPAY ==
[2022-11-24 12:49] VITALS: BP 181/87; PULSE 70; RESP 18; TEMP 37.5; O2SAT 98
--- NOTE | 2022-11-24 14:29 | ED.GENADUL_ITS ---
Discharge Plan Disposition Patient Disposition: Eloped Condition: Stable Discharge Details Chief Complaint: RashLesion Clinical Impression: Cyst, pilonidal, with abscess Primary Care Provider: Hanna Mcneill ED Provider: Edgard Chapa Home Meds and New Rx's Prescriptions: No Action clonidine 0.1 mg/24 hr patch weekly 1 patch transdermal QWEEK Qty: 4 2RF losartan 100 mg tablet 100 mg PO DAILY Qty: 90 3RF verapamil 360 mg capsule,ext rel. pellets 24 hr 360 mg PO QAM Qty: 90 1RF levothyroxine 200 mcg tablet 200 mcg PO DAILY Qty: 90 1RF Rx Instructions: 200mcg total daily diazepam 10 mg tablet 10 mg PO DAILY PRN (Reason: anxiety) Qty: 10 0RF ergocalciferol (vitamin D2) 1,250 mcg (50,000 unit) capsule 50,000 unit PO QWEEK Qty: 13 1RF cephalexin 500 mg tablet 500 mg PO DAILY Qty: 90 3RF ibuprofen 600 mg tablet 600 mg PO BID Qty: 180 0RF Rx Instructions: Need to do labs before another rx acetaminophen 500 MG tablet 1,000 mg PO BID PRN Medical Decision Making 57-year-old female presents with recurrent pilonidal cyst abscess. Hemodynamically stable nontoxic. Localized induration fluctuance. Will provide analgesia anxiolysis topical and local anesthetic and will perform ultrasound- guided bedside incision and drainage. Will start patient on clindamycin given level of induration and erythema near region no evidence of extension into perianal region. No systemic signs of illness at this time. 14: 57 patient does not want to wait patient eloped HPI General Date/Time Provider Initiated Documentation: 11/24/22 14:11 . HPI Narrative: 57-year-old female presents with recurrence pilonidal cyst had a procedure as a younger woman, noticed a recurrence over the past several days. No spontaneous drainage no fevers or chills Related Data Home Medications Medication Instructions Recorded Confirmed acetaminophen 500 mg tablet 1,000 mg PO BID PRN 09/02/16 11/24/22 diazepam 10 mg tablet 10 mg PO DAILY PRN anxiety #10 tabs 12/20/20 11/24/22 cephalexin 500 mg tablet 500 mg PO DAILY #90 tabs 08/31/22 11/24/22 ergocalciferol (vitamin D2) 1,250 50,000 unit PO QWEEK #13 caps 08/31/22 11/24/22 mcg (50,000 unit) capsule ibuprofen 600 mg tablet 600 mg PO BID #180 tabs 09/13/22 11/24/22 clonidine 0.1 mg/24 hr weekly 1 patch transdermal QWEEK #4 ea 11/09/22 11/24/22 transdermal patch levothyroxine 200 mcg tablet 200 mcg PO DAILY #90 tab-caps 11/09/22 11/24/22 losartan 100 mg tablet 100 mg PO DAILY #90 tabs 11/09/22 11/24/22 verapamil 360 mg 24 hr 360 mg PO QAM #90 caps 11/09/22 11/24/22 capsule,extended release Previous Rx's Medication Instructions Recorded diazepam 10 mg tablet 10 mg PO DAILY PRN anxiety #10 tabs 12/20/20 cephalexin 500 mg tablet 500 mg PO DAILY #90 tabs 08/31/22 ergocalciferol (vitamin D2) 1,250 50,000 unit PO QWEEK #13 caps 08/31/22 mcg (50,000 unit) capsule ibuprofen 600 mg tablet 600 mg PO BID #180 tabs 09/13/22 clonidine 0.1 mg/24 hr weekly 1 patch transdermal QWEEK #4 ea 11/09/22 transdermal patch levothyroxine 200 mcg tablet 200 mcg PO DAILY #90 tab-caps 11/09/22 losartan 100 mg tablet 100 mg PO DAILY #90 tabs 11/09/22 verapamil 360 mg 24 hr 360 mg PO QAM #90 caps 11/09/22 capsule,extended release Allergies Allergy/AdvReac Type Severity Reaction Status Date / Time varenicline Allergy Intermediate SKIN RASH Verified 11/24/22 12:53 amlodipine AdvReac Mild edema Verified 11/24/22 12:53 Penicillins AdvReac Other (See Verified 11/24/22 12:53 Comment) General Stated Complaint: RashLesion SARAY: 3 Review of Systems Narrative: Review of Systems Constitutional: negative Eyes: negative ENT: negative Cardiovascular: negative Respiratory: negative Gastrointestinal: negative : negative Musculoskeletal: negative Skin: Pilonidal cyst abscess Neurologic: negative Psych: negative PFSH All Active Problems (Updated 11/24/22 @ 14:57 by Edgard Chapa MD) Cyst, pilonidal, with abscess (Acute) Vaginal atrophy (Chronic 11/04/17) Tinea corporis (Chronic 07/14/15) Smoker (Chronic) Primary malignant neoplasm of thyroid gland (Chronic 08/13/13) 08/30 THYROID U/S: NODULE papillary thyroid CA; S/P removal; now hypothyroid Plantar fascia syndrome (Chronic 05/03/16) Pilonidal cyst (Chronic 01/21/18) CHRONIC 02/20/18 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) Hypothyroidism (Chronic 08/13/13) Gout (Chronic 09/14/14) Essential hypertension (Chronic 11/13/13) Depressive disorder (Chronic 05/09/10) 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) Cervical pain (neck) (Chronic 10/27/15) Carpal tunnel syndrome (Chronic 02/28/12) 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) Pain of left hip (Acute 07/25/17) Onychomycosis (Acute) Herpes zoster (Acute 03/19/13) Herpes simplex (Acute) Wet senile macular retinal degeneration (Acute) Snoring (Acute) Encounter for annual physical exam (Acute) Encounter for screening colonoscopy (Acute) Foot pain, bilateral (Acute) Vitamin D deficiency (Acute) Advance care planning (Acute) Trigger thumb, right thumb (Acute) Injected 09/11/2021 Medical History (Updated 11/24/22 @ 14:57 by Edgard Chapa MD) Abdominal pain, left upper quadrant Spasms; 3/05 Rib/Sternum films Neg Annual physical exam (09/06/15) Cellulitis of left lower leg 09/02/16 Cellulitis of left lower leg (09/02/16) Chronic cystitis MULTIPLE CYSTS: AXILLA/LEGS/ETC. 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 [place] of eye surgery Lobectomy (~08/2007) R LOBE-PUPILLARY CA; DR[place] [facility] [place] History Mother , 77 Diabetes Essential hypertension Heart disease ANEURSYM X 6 Father , 67 Diabetes Essential hypertension Heart disease Hyperlipidemia Sister Diabetes Brother Diabetes Essential hypertension Depression Brother Diabetes Essential hypertension Social History Smoking/Tobacco Use Status: Current every day Tobacco Type: cigarettes Smoking packs per day: 0.5 Smoking cigarettes per day: 10.0 Years smoked: 38 Smoking pack-years: 19.00 Quit status: not considering quitting Second Hand Exposure: Yes Counseling given: provider counseling Smoking risk assessment performed?: Yes Alcohol Intake: current Alcohol Intake frequency: a few times a month Alcohol type: wine Drug use: Rarely Substance use type: marijuana Details: occasional edible Household members: spouse current occupation: works packing eggs Pets and animals: Yes Pets and animals: dog(s) Sexually active: Yes Do you think of yourself as: straight/heterosexual Current gender identity: female What is your relationship status?: How often do you talk on the phone with friends or family?: twice per week How often do you get together with friends or relatives?: once per week Do you belong to any clubs or organized social groups?: yes Panel score (0-1 are the most socially isolated patients): 3 Binta/Zoroastrian: [employer] Special binta needs: No Seatbelt use: sometimes Helmet use: Yes Helmet use: always Drive intox 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 Do you feel safe at home: Yes Do you feel safe in your relationship?: Yes Exam Narrative Exam Narrative: Physical Examination General: alert, awake, cooperative, resting comfortably, no acute distress Skin: Pilonidal cyst abscess with local induration and fluctuance Neuro: AAOx3, normal speech, moving all extremities Psych: Appropriate mood and affect Course Vital Signs Vital signs: Vital Signs Temperature 37.5 C 11/24/22 12:49 Pulse 70 11/24/22 12:49 Respiratory Rate 18 11/24/22 12:49 Blood Pressure 181/87 H 11/24/22 12:49 Pulse Oximetry 98 11/24/22 12:49 Temperature 37.5 C 11/24/22 12:49 Temperature Source Temporal Artery Scan 11/24/22 12:49 Pulse 70 11/24/22 12:49 Respiratory Rate 18 11/24/22 12:49 Respiratory Effort Non-Labored 11/24/22 12:54 Blood Pressure 181/87 H 11/24/22 12:49 Blood Pressure Position Sitting 11/24/22 12:49 Pulse Oximetry 98 11/24/22 12:49 Oxygen Delivery Method Room Air 11/24/22 12:49 Oxygen Flow Rate 0 11/24/22 12:49 Pain Level 10 11/24/22 12:49
== END 2022-11-24 14:50 | disposition left against medical advice (07) ==
PROVIDERS: Emergency Provider Emergency Medicine; PCP Family Medicine
DX: L05.01 Pilonidal cyst with abscess (principal); Z53.29 Procedure and treatment not carried out because of patient's decision for other reasons
CPT/HCPCS: 80053; 99281; 85025; 99282

== ENCOUNTER 2023-01-11 01:12 | Outpatient (CLI) | payer MEDICAID, SELFPAY ==
[2023-01-11 12:34] LABS: Anion Gap 6.8 mmol/L (3-11); BUN 16 mg/dL (7-18); CO2 31.2 mmol/L (21.0-32.0); CREATININE 0.9 mg/dL (0.55-1.02); Calcium 9.6 mg/dL (8.5-10.1); Chloride 104 mmol/L (98-107); Glucose 129 mg/dL (74-106); Potassium 3.8 mmol/L (3.5-5.1); Sodium 142 mmol/L (136-145)
== END 2023-01-11 01:13 | disposition home or self-care (01) ==
LOC: LOS 01:12
PROVIDERS: PCP Family Medicine; Visit Provider Family Medicine
DX: I10 Essential (primary) hypertension (principal)
CPT/HCPCS: 36415; 80048

== ENCOUNTER 2023-05-24 00:09 | Outpatient (CLI) | payer MEDICAID, SELFPAY ==
--- NOTE | 2023-05-24 07:45 | DI.CTLCSR_ITS ---
Exam(s) CT CHEST LUNG CANCER SCREEN EXAM: CT CHEST LUNG CANCER SCREEN CLINICAL HISTORY: Screening for lung cancer,CURRENT SMOKER, F17.210 TECHNIQUE: Imaging Protocol: Axial computed tomography images with coronal and sagittal reformatted images were created and reviewed. Low dose screening protocol. COMPARISON: CR CHEST 2 VIEWS PA,LAT from 09/11/2017 FINDINGS: Tracheobronchial tree: No bronchiectasis or mucus plugging.. Mediastinum and Cristy: No dominant adenopathy or fluid collection. Pulmonary parenchyma: No consolidation or dominant measurable mass. Mild emphysematous changes. Areas of air trapping visible. Lung Nodules: A few scattered tiny nodules are seen. The largest is in the lateral right lower lobe which measures 5 millimeters in diameter. Pleura: No effusion. No pneumothorax. Heart: The heart is not dilated. [id number] coronary artery calcifications are seen. Aorta: Thoracic aorta non-dilated. Upper degenerative disc changes. Soft Tissues: Unremarkable. IMPRESSION: 5 millimeter nodule left lower lobe. Lung RADS Cat 2 - Benign Appearance / Behavior: Nodules with a very low likelihood of becoming a clin ically active cancer due to size or lack of growth Lung-RADS 1.0 CATEGORIES: Category 0 - Prior chest CT exam(s) being located for comparison. Category 1 - Annual screening in 12 months. No nodules or definitely benign nodules. Category 2 - Annual screening in 12 months. Benign appearance. Nodules with low likelihood of becomin g active cancer. Category 3 - 6-month follow-up. Probably benign. Short-term follow-up suggested. Nodules with low lik elihood of becoming active cancer. Category 4A - 3-month follow-up and CT/PET if >8 mm in size. Suspicious finding. Findings which requi re additional testing. Category 4B - Findings which require additional testing and tissue sampling. Category 4X - Category 3 or 4 nodules with additional features or imaging findings that increases the suspicion of malignancy. Modifier S- Potentially clinically significant findings (non lung cancer) RADIATION DOSE DELIVERED: 71.6mGy.cm Total DLP DATA REPOSITORY: All CT scans at this facility are submitted to the National Radiology Data Registry (NRDR) Dose Index Registry (DIR) with the [employer] (A[employer]). RADIATION OPTIMIZATION: All CT scans at this facility use at least one of these dose optimization te chniques: automated exposure control; mA and/or kV adjustment per patient size (includes targeted exa ms where dose is matched to clinical indication); or iterative reconstruction.
--- NOTE | 2023-05-24 07:45 | DI.MAMMO_ITS ---
Exam(s) MAMMO SCREENING EXAM: MAMMO SCREENING CLINICAL HISTORY: screening,Z12.39 TECHNIQUE: Mammograms were interpreted according to the usual protocol including computer analysis w [employer] CAD system, tomosynthesis and C-view imaging. COMPARISON: US LEFT BREAST ULTRASOUND from 09/11/2013 FINDINGS: The breasts are composed of heterogeneously dense fibroglandular tissue which may decrease the sensit ivity of the mammogram. No suspicious masses or suspicious microcalcifications are seen in the right breast. There is a question of an area of increased masslike density with some architectural distortion in th e upper outer quadrant of the left breast versus overlying tissue. Spot compression views and ultras ound are requested for further evaluation. No skin thickening or abnormal axillary lymph nodes are seen in either breast. There has been no significant change in the right breast from prior exams. IMPRESSION: BI-RADS Category 0 - Assessment Incomplete: Need additional imaging evaluation Breast Density - Category C - Heterogeneously dense A negative radiographic report should not delay biopsy if a dominant or clinically suspicious mass is present. Up to ten percent of cancers are not identified on mammography. A negative report may reinforce clinical impression. Adenosis and dense breasts may obscure an underlying neoplasm. False positive reports average 6 to 10%. Patient will receive a letter notifying them of these results.
== END 2023-05-24 00:29 ==
PROVIDERS: PCP Family Medicine; Visit Provider Family Medicine
DX: F17.210 Nicotine dependence, cigarettes, uncomplicated (principal); Z12.31 Encounter for screening mammogram for malignant neoplasm of breast; Z12.2 Encounter for screening for malignant neoplasm of respiratory organs; R91.1 Solitary pulmonary nodule
CPT/HCPCS: 71271; 77063; 77067

== ENCOUNTER 2023-06-07 00:40 | Outpatient (CLI) | payer MEDICAID, SELFPAY ==
--- NOTE | 2023-06-07 | DI.US_ITS ---
Exam(s) MAMMO SCREEN CALL BACK UNI US BREAST LT COMPLETE EXAM: MAMMO SCREEN CALL BACK UNI CLINICAL HISTORY: F/U MAMMO, R92.8,INCREASED MASSLIKE DENSITY. TECHNIQUE: Unilateral spot mammographic images obtained with 3D tomosynthesisand utilizing computer aided detection (CAD). . Complete LEFT breast Ultrasound was also performed, including all 4 quadrants, the retroareolar regio n, and the ipsilateral axilla. COMPARISON: Prior mammograms were reviewed. This additional imaging was performed due to findings described on the recent screening mammogram of 05/24/2023. FINDINGS: DIAGNOSTIC MAMMOGRAM: Additional mammographic views performed todayrender this area similar appearance to prior mammograms COMPLETE LEFT BREAST ULTRASOUND: Ultrasound performed today reveals 2 findings at the 2 o'clock position. One has appearance of a sim ple microcysts which measures 4 x 3 mm. The other is either small nodule or hemorrhagic microcyst an d measures 5 x 3 mm. Both exhibits increased through transmission. At the 4 o'clock position there is a simple microcyst measuring by 3 mm. No other findings in all 4 quadrants. Scanning of the ipsilateral axilla reveals no significant adenopathy. IMPRESSION: 1. No radiographic evidence of malignancy. 2. Left upper quadrant ultrasound findings as described above. Recommend follow-up ultrasound in 3 months to revisit the 2 o'clock position findings on ultrasound. The patient was informed of these findings and recommendations by myself prior to leaving the departm ent today. BI-RADS Category 3 - 3 month - Probably Benign Finding: Recommend follow-up mammography in 3 months Recommend follow-up mammography and ultrasound in 3 months Breast Density - Category C - Heterogeneously dense Breast density Category C or D implies that the patient has dense breast tissue. Dense breast tissue can make it harder to find cancer on a mammogram. Dense breast tissue is also associated with an incr eased risk of breast cancer. This information about the result of the mammogram report was provided to the patient to raise their awareness. Use this report when you speak with the patient about their risks for breast cancer, which includes their family history. At that time, you may recommend additional screening tests (Ultrasoun d or MRI) as these tests may add significant information. A negative radiographic report should not delay biopsy if a dominant or clinically suspicious mass is present. Up to ten percent of cancers are not identified on mammography. A negative report may reinforce clinical impression. Adenosis and dense breasts may obscure an underlying neoplasm. False positive reports average 6 to 10%. Patient will receive a letter notifying them of these results.
== END 2023-06-07 01:00 ==
LOC: DI 00:40
PROVIDERS: PCP Family Medicine; Visit Provider Family Medicine
DX: Z12.31 Encounter for screening mammogram for malignant neoplasm of breast (principal); N63.13 Unspecified lump in the right breast, lower outer quadrant
CPT/HCPCS: 76642; 77063; 77067

== ENCOUNTER 2023-06-07 02:05 | Outpatient (CLI) | payer MEDICAID, SELFPAY ==
[2023-06-07 08:50] LABS: Hemoglobin A1C 5.8 % (<5.7)
[2023-06-07 09:27] LABS: ALT 26 U/L (14-59); AST 16 U/L (15-37); Albumin 3.8 g/dL (3.4-5.0); Alkaline Phosphatase 82 U/L (46-116); Anion Gap 9.5 mmol/L (3-11); BUN 20 mg/dL (7-18); Bilirubin, Total 0.4 mg/dL (0.2-1.0); CO2 28.5 mmol/L (21.0-32.0); Calculated LDL 133 mg/dL (<100); Chloride 106 mmol/L (98-107); Cholesterol 202 mg/dL (<200); Estimated GFR 66.53 (mL/min/1.73m2); Glucose 166 mg/dL (74-106); HDL Cholesterol 46 mg/dL (40-60); Potassium 3.3 mmol/L (3.5-5.1); Sodium 144 mmol/L (136-145); TSH (W/Ref FT4) 0.09 uIU/mL (0.36-3.74); Total Protein 7.3 g/dL (6.4-8.2); Triglyceride 119 mg/dL (<150)
[2023-06-07 09:43] LABS: FREE T4 1.55 ng/dL (0.76-1.46)
[2023-06-07 20:05] LABS: Thyroglobulin Antibody <15 U/mL (<=60)
== END 2023-06-07 02:06 | disposition home or self-care (01) ==
LOC: LBO 02:05
PROVIDERS: PCP Family Medicine; Visit Provider Family Medicine
DX: E11.9 Type 2 diabetes mellitus without complications (principal); I10 Essential (primary) hypertension; E03.9 Hypothyroidism, unspecified; Z85.850 Personal history of malignant neoplasm of thyroid
CPT/HCPCS: 36415; 80053; 80061; 83036; 84439; 84443; 86800

== ENCOUNTER 2023-09-13 00:45 | Outpatient (CLI) | payer MEDICAID, SELFPAY ==
--- NOTE | 2023-09-13 13:15 | DI.US_ITS ---
Exam(s) US BREAST LT COMPLETE EXAM: US BREAST LT COMPLETE CLINICAL HISTORY: 3-6 mo f/u z09 r92.8 abnl mammo 3-6 mo fu. TECHNIQUE: Complete ultrasound of the left breast was performed including all 4 quadrants, the retro areolar region, and the ipsilateral axilla. COMPARISON: Prior ultrasound of June 07, 2023 was reviewed. Prior mammograms also reviewed FINDINGS: LEFT BREAST ULTRASOUND: At the 1-2 o'clock position the previously described 4 x 3 millimeter nodule is again noted, unchange d in size configuration. It exhibits slightly increased through transmission. No decreased through transmission. Probable hemorrhagic microcyst. The other previously described small simple microcysts in this region is no longer seen. At the 4 o'clock position there is a 3 mm microcyst. Scanning of the left axilla is negative for adenopathy IMPRESSION: Unchanged appearance of the 1-2 o'clock position 4 x 3 mm nodule when compared to prior ultrasound ex am of 06/07/2023, 3 months ago. Appropriate follow-up, as discussed by myself with the patient today, is repeat left breast ultrasoun d in 6 months. BI-RADS Category 3 - 6 month - Probably Benign Finding: Recommend follow-up mammography in 6 months Breast Density - Category C - Heterogeneously dense Breast density Category C or D implies that the patient has dense breast tissue. Dense breast tissue can make it harder to find cancer on a mammogram. Dense breast tissue is also associated with an incr eased risk of breast cancer. This information about the result of the mammogram report was provided to the patient to raise their awareness. Use this report when you speak with the patient about their risks for breast cancer, which includes their family history. At that time, you may recommend additional screening tests (Ultrasoun d or MRI) as these tests may add significant information. A negative radiographic report should not delay biopsy if a dominant or clinically suspicious mass is present. Up to ten percent of cancers are not identified on mammography. A negative report may reinforce clinical impression. Adenosis and dense breasts may obscure an underlying neoplasm. False positive reports average 6 to 10%. Patient will receive a letter notifying them of these results.
== END 2023-09-13 01:05 ==
LOC: DI 00:45
PROVIDERS: PCP Family Medicine; Visit Provider Family Medicine
DX: R92.8 Other abnormal and inconclusive findings on diagnostic imaging of breast (principal); Z09 Encounter for follow-up examination after completed treatment for conditions other than malignant neoplasm
CPT/HCPCS: 76642

== ENCOUNTER → 2024-03-13 00:04 | Outpatient (CLI) | payer MEDICAID, SELFPAY ==
--- NOTE | 2024-03-13 08:00 | DI.US_ITS ---
Exam(s) MG MAMMO DIAGNOSTIC UNI US BREAST LT LIMITED EXAM: MG MAMMO DIAGNOSTIC UNI CLINICAL HISTORY: 6 mo f/u, LT NODULE. TECHNIQUE: Full field and craniocaudal and mediolateral oblique spot compression digital Mammography views of the leftbreast with Tomosynthesis and left breast ultrasound. COMPARISON: MG Screening Bilat Mammo from 10/05/2016 MG Screening Bilat Mammo from 12/16/2017 MG MG MAMMO SCREENING from 07/26/2021 MG MG MAMMO SCREENING from 05/24/2023 MG MG MAMMO SCREEN CALL BACK UNI from 06/07/2023 US US BREAST LT COMPLETE from 06/07/2023 US US BREAST LT COMPLETE from 09/13/2023 US US BREAST LT LIMITED from 03/13/2024 FINDINGS: Mammography/Tomosynthesis: Masses/Architectural Distortion: Area of dense tissue seen in the lateral left breast. No significan t record changer tester time. Less prominent on spot compression views. Microcalcifictions: No suspicious pleomorphic-type are seen. Skin Thickening/Nipple Retraction: None. Left breast US: Echotexture: Normal appearance of the glandular tissue. Shadowing: No suspicious foci. Cyst: No change in small cysts in the lateral portion of the breast, 5 millimeters or less in size.. Solid lesions: None seen. Ductal dilation: None. IMPRESSION: 1. No evidence of malignancy is noted. 2. Unless there is more urgent need, follow-up screening mammography is recommended, as per [employer] guidelines. 3. BI-RADS Category 2 - Benign Findings Breast Density - Category C - Heterogeneously dense A mammogram that demonstrates density of C or D indicates the patient's breast tissue is dense. Dense breast tissue is very common and is not abnormal, but dense breast tissue can make it harder to find cancer on a mammogram. Also, dense breast tissue may increase their breast cancer risk. This informa tion about the result of the mammogram report was provided to the patient to raise their awareness. U se this report when you speak with the patient about their risks for breast cancer, which includes th eir family history. At that time, you may recommend for more screening tests (Ultrasound or MRI) as t hey might be useful based on their risk. A negative radiographic report should not delay biopsy if a dominant or clinically suspicious mass is present. Up to ten percent of cancers are not identified on mammography. A negative report may reinforce clinical impression. Adenosis and dense breasts may obscure an underlying neoplasm. False positive reports average 6 to 10%. Patient will receive a letter notifying them of these results.
== END ==
PROVIDERS: PCP Family Medicine; Visit Provider Family Medicine
DX: Z09 Encounter for follow-up examination after completed treatment for conditions other than malignant neoplasm (principal); R92.8 Other abnormal and inconclusive findings on diagnostic imaging of breast
CPT/HCPCS: 76642; 77061; 77065; G0279

== ENCOUNTER 2024-03-13 02:37 | Outpatient (CLI) | payer MEDICAID, SELFPAY ==
[2024-03-13 12:31] LABS: Anion Gap 11.9 mmol/L (3-11); BUN 20 mg/dL (7-18); CO2 26.1 mmol/L (21.0-32.0); Calcium 9.1 mg/dL (8.5-10.1); Chloride 106 mmol/L (98-107); Estimated GFR 66.12 (mL/min/1.73m2); Glucose 98 mg/dL (74-106); Potassium 3.9 mmol/L (3.5-5.1); Sodium 144 mmol/L (136-145)
== END 2024-03-13 02:38 | disposition home or self-care (01) ==
LOC: LBO 02:55
PROVIDERS: PCP Family Medicine; Visit Provider Family Medicine
DX: I10 Essential (primary) hypertension (principal)
CPT/HCPCS: 36415; 80048

== ENCOUNTER 2024-05-25 18:11 | Outpatient (REF) | payer MEDICAID, SELFPAY ==
--- NOTE | 2024-05-25 13:30 | PAPFT_PTH ---
PATIENT: Chanelle Arnold LOC: [facility] U#:[id number] AGE/SX: 58/F ROOM: RE05/25/[address]: Hanna Mcneill MD, DC : 1965 BED: DIS: 05/25/2024 SPEC #: [id number] RECD: 05/26/24 13:39 STATUS: KYLE REAntonio #: [id number] MANNIE: 05/25/24 13:[address]: Hanna Mcneill DEPT: [facility] Cytology RECD BY: Lina David Tissues: 1 - CX/ENDOCX FOR PAP SMEARS Procedures: PAP THIN PREP/UVM Screening HPV DNA PROBE Comments: [id number] (HPV 16 & 18/45)
== END 2024-05-25 18:12 | disposition home or self-care (01) ==
LOC: LBN 18:11
PROVIDERS: PCP Family Medicine; Visit Provider Family Medicine
DX: Z00.00 Encounter for general adult medical examination without abnormal findings (principal); C73 Malignant neoplasm of thyroid gland
CPT/HCPCS: 88142; 87624

== ENCOUNTER 2024-07-03 01:01 | Outpatient (CLI) | payer MEDICAID, SELFPAY ==
[2024-07-03 08:11] LABS: ALT 35 U/L (14-59); AST 10 U/L (15-37); Albumin 3.9 g/dL (3.4-5.0); Alkaline Phosphatase 79 U/L (46-116); Anion Gap 11.1 mmol/L (3-11); BUN 28 mg/dL (7-18); Bilirubin, Total 0.37 mg/dL (0.2-1.0); CO2 24.9 mmol/L (21.0-32.0); CREATININE 1.1 mg/dL (0.55-1.02); Calcium 9.4 mg/dL (8.5-10.1); Chloride 104 mmol/L (98-107); Estimated GFR 58.97 (mL/min/1.73m2); Glucose 120 mg/dL (74-106); Potassium 4.2 mmol/L (3.5-5.1); Sodium 140 mmol/L (136-145); TSH (W/Ref FT4) 0.33 uIU/mL (0.36-3.74); Total Protein 7.5 g/dL (6.4-8.2); Vitamin B12 268 pg/mL (193-986)
[2024-07-03 08:52] LABS: FREE T4 1.38 ng/dL (0.76-1.46)
[2024-07-03 18:49] LABS: Thyroglobulin Antibody <15 U/mL (<=60)
== END 2024-07-03 01:02 | disposition home or self-care (01) ==
LOC: LBO 01:01
PROVIDERS: PCP Family Medicine; Visit Provider Family Medicine
DX: Z00.00 Encounter for general adult medical examination without abnormal findings (principal); E03.9 Hypothyroidism, unspecified; R79.89 Other specified abnormal findings of blood chemistry; C73 Malignant neoplasm of thyroid gland; I10 Essential (primary) hypertension; E11.9 Type 2 diabetes mellitus without complications
CPT/HCPCS: 36415; 80053; 82607; 83036; 84439; 84443; 86800

== ENCOUNTER 2024-12-06 09:58 | Emergency (ER) | payer MEDICAID, SELFPAY ==
[2024-12-06 10:07] VITALS: BP 184/76; PULSE 72; RESP 18; TEMP 36.6; O2SAT 97
--- NOTE | 2024-12-06 10:15 | DI.RAD_ITS ---
Exam(s) XR CHEST 2V PA LATERAL EXAM: XR CHEST 2V PA LATERAL CLINICAL HISTORY: cough TECHNIQUE: 2D digital imaging was performed of the chest. Two images were obtained. PA and lateral views were obtained. COMPARISON: CR CHEST 2 VIEWS PA,LAT from 09/11/2017 FINDINGS: There are low lung volumes with crowding of the pulmonary vasculature. MEDIASTINUM: Normal. HEART: Normal. PULMONARY VASCULATURE: Normal. LUNGS: There are no focal consolidating infiltrates. PLEURAL SPACE: No pleural effusion or pneumothorax. BONE:Within normal limits for the patient's age. OTHER FINDINGS:Normal. IMPRESSION: No acute pulmonary findings. DATA REPOSITORY: RADIATION DOSE DELIVERED:
--- NOTE | 2024-12-06 10:20 | ED.GENADUL_ITS ---
Discharge Plan Disposition Patient Disposition: Home Condition: Stable Discharge Details Clinical Impression: Acute respiratory infection Primary Care Provider: Hanna Mcneill ED Provider: Zachary Montesinos Home Meds and New Rx's Prescriptions: New prednisone 20 mg tablet 60 mg PO DAILY 4 Days Qty: 12 0RF doxycycline hyclate 100 mg tablet 100 mg PO BID Qty: 14 0RF Continued diazepam 10 mg tablet 10 mg PO DAILY PRN (Reason: anxiety) Qty: 10 0RF omeprazole 20 mg capsule,delayed release(DR/EC) 20 mg PO DAILY Qty: 90 4RF ibuprofen 200 mg tablet 200 mg PO Q6H PRN ofloxacin 0.3 % drops 5 drp otic (ear) bid 7 Days Qty: 5 1RF triamcinolone acetonide 0.05 % ointment 1 applic topical BID 7 Days Qty: 1 1RF verapamil 360 mg capsule,ext rel. pellets 24 hr 360 mg PO QAM Qty: 90 3RF hydrochlorothiazide 25 mg tablet 25 mg PO DAILY Qty: 90 4RF ergocalciferol (vitamin D2) 1,250 mcg (50,000 unit) capsule 50,000 unit PO QWEEK Qty: 13 0RF levothyroxine 175 mcg tablet 175 mcg PO DAILY Qty: 90 3RF Rx Instructions: 175mcg total daily clonidine 0.1 mg/24 hr patch weekly 1 patch transdermal QWEEK Qty: 12 3RF spironolactone 25 mg tablet 25 mg PO BID Qty: 90 4RF losartan 100 mg tablet 100 mg PO DAILY Qty: 90 3RF cephalexin 500 mg tablet 500 mg PO DAILY Qty: 90 3RF acetaminophen 500 MG tablet 1,000 mg PO BID PRN Discharge Instructions Additional Instructions: If not proving this week follow-up with your primary care provider or express care Take 2 puffs of inhaler every 4 hours as needed If you feel more ill or have severe worsening shortness of breath return to the emergency department for reevaluation HPI General Mode of arrival: ambulatory . Date/Time Provider Initiated Documentation: 12/06/24 10:03 . Limitations to Documentation: no limitations . Information obtained by: patient . History of Present Illness 59 year old F presents to the emergency department with the chief complaint of cough, described as moderate, Patient started experiencing this day(s) (5) and it has been constant. No relieving factors improve symptom(s), No exacerbating factors reported . Patient notes cough; denies nausea/vomiting and shortness of breath. Patient did receive the following treatments prior to arrival, none Related Data Home Medications ?Medication ?Instructions ?Recorded ?Confirmed acetaminophen 500 mg tablet 1,000 mg PO BID PRN 09/02/16 12/06/24 verapamil 360 mg 24 hr 360 mg PO QAM #90 caps 12/27/23 12/06/24 capsule,extended release diazepam 10 mg tablet 10 mg PO DAILY PRN anxiety #10 tabs 01/21/24 12/06/24 hydrochlorothiazide 25 mg tablet 25 mg PO DAILY hypertension #90 07/06/24 12/06/24 tabs ibuprofen 200 mg tablet 200 mg PO Q6H PRN 07/24/24 12/06/24 ofloxacin 0.3 % ear drops 5 drp otic (ear) bid 7 days #5 mL 07/24/24 12/06/24 triamcinolone acetonide 0.05 % 1 applic topical BID 7 days #1 ea 09/18/24 12/06/24 topical ointment ergocalciferol (vitamin D2) 1,250 50,000 unit PO QWEEK #13 caps 09/28/24 12/06/24 mcg (50,000 unit) capsule levothyroxine 175 mcg tablet 175 mcg PO DAILY #90 tab-caps 09/28/24 12/06/24 cephalexin 500 mg tablet 500 mg PO DAILY #90 tabs 10/26/24 12/06/24 clonidine 0.1 mg/24 hr weekly 1 patch transdermal QWEEK #12 ea 10/26/24 12/06/24 transdermal patch losartan 100 mg tablet 100 mg PO DAILY #90 tabs 10/26/24 12/06/24 spironolactone 25 mg tablet 25 mg PO BID #90 tabs 10/26/24 12/06/24 omeprazole 20 mg capsule,delayed 20 mg PO DAILY #90 caps 11/12/24 12/06/24 release doxycycline hyclate 100 mg tablet 100 mg PO BID #14 tabs 12/06/24 prednisone 20 mg tablet 60 mg (3 x 20 mg) PO DAILY 4 days 12/06/24 #12 tabs Previous Rx's ?Medication ?Instructions ?Recorded verapamil 360 mg 24 hr 360 mg PO QAM #90 caps 12/27/23 capsule,extended release diazepam 10 mg tablet 10 mg PO DAILY PRN anxiety #10 tabs 01/21/24 hydrochlorothiazide 25 mg tablet 25 mg PO DAILY hypertension #90 07/06/24 tabs ofloxacin 0.3 % ear drops 5 drp otic (ear) bid 7 days #5 mL 07/24/24 triamcinolone acetonide 0.05 % 1 applic topical BID 7 days #1 ea 09/18/24 topical ointment ergocalciferol (vitamin D2) 1,250 50,000 unit PO QWEEK #13 caps 09/28/24 mcg (50,000 unit) capsule levothyroxine 175 mcg tablet 175 mcg PO DAILY #90 tab-caps 09/28/24 cephalexin 500 mg tablet 500 mg PO DAILY #90 tabs 10/26/24 clonidine 0.1 mg/24 hr weekly 1 patch transdermal QWEEK #12 ea 10/26/24 transdermal patch losartan 100 mg tablet 100 mg PO DAILY #90 tabs 10/26/24 spironolactone 25 mg tablet 25 mg PO BID #90 tabs 10/26/24 omeprazole 20 mg capsule,delayed 20 mg PO DAILY #90 caps 11/12/24 release doxycycline hyclate 100 mg tablet 100 mg PO BID #14 tabs 12/06/24 prednisone 20 mg tablet 60 mg (3 x 20 mg) PO DAILY 4 days 12/06/24 #12 tabs Allergies Allergy/AdvReac Type Severity Reaction Status Date / Time varenicline Allergy Intermediate SKIN RASH Verified 12/06/24 10:13 amlodipine AdvReac Mild edema Verified 12/06/24 10:13 Penicillins AdvReac Other (See Verified 12/06/24 10:13 Comment) General Stated Complaint: Sorethroat SARAY: 4 Review of Systems All systems reviewed & are unremarkable except as noted in HPI and below Constitutional Constitutional: Reports chills, Denies fever(s) and Denies weakness Cardiovascular Cardiovascular: Denies chest pain and Denies dyspnea Respiratory Respiratory: Reports cough and Denies dyspnea Gastrointestinal Gastrointestinal: Denies abdominal pain, Denies nausea and Denies vomiting Genitourinary Genitourinary: Denies dysuria Integumentary/Breasts Skin/Breast: Denies rash Neurologic Neurologic: Denies weakness Psychiatric Psychiatric: Denies depression Exam Const General: no acute distress Orientation: alert HENMT Head: normal to inspection Ears: external ears normal General nose exam: external nose normal Mouth: moist mucous membranes Eyes General: appearance normal, both eyes and all related structures Neck Neck: normal visual inspection Resp Effort & Inspection: normal respiratory effort and able to speak in complete sentences Auscultation: wheezes Cardio Jugular venous pressure: no JVD Rate: regular rate Heart Sounds: no murmurs Skin General skin exam: no rashes or lesions noted Neuro General: patient alert and patient oriented x3 Extrem General: normal to inspection Psych Mental Status: mental status grossly normal Course Vital Signs Vital signs: Vital Signs Temperature 36.6 C 12/06/24 10:07 Pulse 72 12/06/24 10:07 Respiratory Rate 18 12/06/24 10:07 Blood Pressure 184/76 H 12/06/24 10:07 Pulse Oximetry 97 12/06/24 10:07 Temperature 36.6 C 12/06/24 10:07 Temperature Source Temporal Artery Scan 12/06/24 10:07 Pulse 72 12/06/24 10:07 Respiratory Rate 18 12/06/24 10:07 Blood Pressure 184/76 H 12/06/24 10:07 Blood Pressure Position Sitting 12/06/24 10:07 Pulse Oximetry 97 12/06/24 10:07 Oxygen Delivery Method Room Air 12/06/24 10:07 Oxygen Flow Rate 0 12/06/24 10:07 Pain Level 7 12/06/24 10:07 Comment Pain in throat 12/06/24 10:07 Lab/Test Results Lab/Test Results: POC Strep Test-[facility](Rapid) Start: 12/06/24 10:18 Freq: .Rapid Strep Test Status: Active Protocol: Document 12/06/24 10:19 HORACE (Rec: 12/06/24 10:19 HORACE [id number]) Strep test-[facility](Rapid)-POC POC-Strep test-[facility] (Rapid) Negative POC-Strep test-[facility] (Rapid) Negative Medical Decision Making 59-year-old female who is a smoker comes in with 5 days of productive cough and chills, denies any fevers. Also has a sore throat. Denies any difficulty breathing or swallowing. She is afebrile on arrival. She has clear rhinorrhea, posterior pharynx does have erythema with a midline uvula. No submandibular swelling or pain over the hyoid restricted neck movements. She has apical wheezing bilaterally otherwise clear lung sounds. I suspect respiratory infection, will check a COVID and flu and RSV swab, strep test and chest x-ray. Given her wheezing and smoking I will treat her with prednisone and DuoNeb. She has no fevers considered such as sepsis. Do not feel any blood work is indicated. She has no findings on exam to suggest entities such as retropharyngeal abscess, epiglottitis or peritonsillar abscess. Patient feels better after neb and has no wheezing anymore. X-ray and Fluvid negative. Given her smoking history we will treat as potential COPD ex acerbation with inhaler, prednisone and also started on doxycycline. She is stable for discharge and will follow-up with her PCP or express care if not improving and return precautions given Differential Diagnosis Differential Diagnosis: URI, COVID, pneumonia, bronchitis Quality:SDOH Health Related Social Needs: Health related social needs details none mentioned PFSH All Active Problems (Updated 12/06/24 @ 12:09 by Zachary Montesinos MD) Acute respiratory infection (Acute) Hoarseness or changing voice (Acute) Eczema of both external ears (Acute) Cerumen impaction (Acute) Otorrhea of right ear (Acute) Left foot pain (Acute) Low vitamin B12 level (Acute) Bilateral hearing loss due to cerumen impaction (Acute) Skin cyst (Acute) Bilateral hearing loss due to cerumen impaction (Acute) Skin lesion (Acute) Earlobe lesion (Acute) Vaginal atrophy (Chronic 11/04/17) Tinea corporis (Chronic 07/14/15) Smoker (Chronic) Primary malignant neoplasm of thyroid gland (Chronic 08/13/13) 08/30 THYROID U/S: NODULE papillary thyroid CA; S/P removal; now hypothyroid Plantar fascia syndrome (Chronic 05/03/16) Pilonidal cyst (Chronic 01/21/18) CHRONIC 02/20/18 [place]'s neuroma of left foot (Chronic 01/18/17) Hypothyroidism (Chronic 08/13/13) Gout (Chronic 09/14/14) Essential hypertension (Chronic 11/13/13) Depressive disorder (Chronic 05/09/10) 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) Cervical pain (neck) (Chronic 10/27/15) Carpal tunnel syndrome (Chronic 02/28/12) 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) Pain of left hip (Acute 07/25/17) Onychomycosis (Chronic) Herpes zoster (Acute 03/19/13) Herpes simplex (Acute) Wet senile macular retinal degeneration (Acute) Snoring (Acute) Encounter for annual physical exam (Acute) Encounter for screening colonoscopy (Acute) Foot pain, bilateral (Acute) Vitamin D deficiency (Acute) Advance care planning (Acute) Trigger thumb, right thumb (Acute) Injected 09/11/2021 Hammer toe of left foot (Acute) Trochanteric bursitis, right hip (Acute) Medical History (Updated 12/06/24 @ 12:09 by Zachary Montesinos MD) Sinus infection Cellulitis of left lower leg (09/02/16) Dysfunctional uterine bleeding (07/10/10) Ingrowing toenail (08/17/14) Left upper quadrant pain Rash of unknown cause (02/13/16) Abdominal pain, left upper quadrant Spasms; 01/27 Rib/Sternum films Neg Herpes simplex Onychomycosis toenails Dysfunctional uterine bleeding 07/10/10 Papillary thyroid carcinoma 08/25/13 Ingrown toenail 08/17/14 Rash of unknown cause 02/13/16 Cellulitis of left lower leg 09/02/16 Left hip pain 07/25/17 Annual physical exam (09/06/15) Chronic cystitis MULTIPLE CYSTS: AXILLA/LEGS/ETC. Herpes zoster (03/19/13) Malignant neoplasm of thyroid gland Surgical History History of eye surgery [place] surgical procedure right [place]ectomy; [place] [place] L[place] (~08/2007) R LOBE-PUPILLARY CA; [place] [facility] [place], Pilonidal Cyst (02/20/18) EYE Family History (Updated 05/26/24 @ 16:08 by Eri Chris) Mother , 77 Diabetes Essential hypertension Heart disease ANEURSYM X 6 Dementia Father , 67 Diabetes Essential hypertension Heart disease Hyperlipidemia Sister Diabetes Brother Diabetes Essential hypertension Depression Brother Diabetes Essential hypertension Social History (Updated 05/26/24 @ 16:08 by Eri Chris) Smoking/Tobacco Use Status: Current every day Tobacco Type: cigarettes Smoking packs per day: 0.5 Smoking cigarettes per day: 10.0 Years smoked: 38 Smoking pack-years: 19.00 Tobacco: How many years used: 39 Quit status: not considering quitting Second Hand Exposure: Yes Counseling given: provider counseling Smoking risk assessment performed?: Yes Alcohol Intake: former Drug use: Never Substance use type: does not use Details: occasional edible Adopted: No Caregiver/Support person: No Household members: spouse Housing: other Details: Mobile Home Communication Needs: None Education Level: high school Do you need help understanding health information?: Never current occupation: works packing eggs Pets and animals: Yes Pets and animals: dog(s) Sexually active: Yes Do you think of yourself as: straight/heterosexual Current gender identity: female What is your relationship status?: How often do you talk on the phone with friends or family?: three or more times per week How often do you get together with friends or relatives?: once per week Do you belong to any clubs or organized social groups?: yes Panel score (0-1 are the most socially isolated patients): 3 Binta/Roman Catholic: Tenriism Special binta needs: No Seatbelt use: always Helmet use: No Drive intox or ride w/intox non emergency services ambulance driver: No Firearms in home: Yes Firearms unloaded and locked: Yes Do you feel safe at home: Yes Do you feel safe in your relationship?: Yes Victim of physical abuse: No Victim of emotional abuse: No Victim of sexual abuse: No Would you like helpful sources: No
[2024-12-06] MEDS: predniSONE 20 MG TAB 60 MG PO (10:25)
[2024-12-06 10:26] VITALS: RESP 6; O2SAT 97
[2024-12-06] MEDS: Albuterol/Ipratropium 3 ML UPD VIAL UPD (10:26)
[2024-12-06 11:33] LABS: COVID-19 PCR Negative (Negative); Influenza A PCR Negative (Negative); Influenza B PCR Negative (Negative); RSV PCR Negative (Negative)
[2024-12-06 11:41] LABS: Source Nasopharynx
[2024-12-06 12:16] VITALS: BP 197/92; PULSE 79; RESP 18; TEMP 36.9; O2SAT 97
[2024-12-06] MEDS: Albuterol HFA 8 GM 60 PUFF INH IH (12:25)
[2024-12-06] MEDS: Doxycycline Hyclate 100 MG CAP PO (12:25)
[2024-12-06] MEDS: Inhaler, Assist Device 1 EACH MC (12:26)
== END 2024-12-06 12:29 | disposition home or self-care (01) ==
PROVIDERS: Emergency Provider Emergency Medicine; PCP Family Medicine
DX: J22 Unspecified acute lower respiratory infection (principal); R07.0 Pain in throat; R05.1 Acute cough; I10 Essential (primary) hypertension
CPT/HCPCS: 87637; 87880; 94640; 99284; 71046; 87081; J7512; J7620

== ENCOUNTER 2025-05-05 13:56 | Inpatient (IN) | payer MEDICAID, SELFPAY ==
[2025-05-05] VITALS (60 sets, daily range): BP systolic 108–220; BP diastolic 67–121; PULSE 63–87; RESP 12–24; TEMP 35.9–36.8; O2SAT 91–97
--- NOTE | 2025-05-05 13:45 | RT.EKG_ITS ---
APPROVED REPORT Exam: Resting ECG Reason for Exam: SOB Patient Location: E HR:79 bpm ECG Measurements Heart Rate 79 AXIS ID 130 P -17 QRSd 88 QRS 29 QT 392 T 51 QTc 450 Conclusion sinus 79 normal axis no stemi
--- NOTE | 2025-05-05 14:15 | DI.RAD_ITS ---
Exam(s) XR CHEST 2V PA LATERAL EXAM: XR CHEST 2V PA LATERAL CLINICAL HISTORY: Chest pain TECHNIQUE: 2D digital imaging was performed of the chest. Two images were obtained. PA and lateral views were obtained. COMPARISON: CR XR CHEST 2V PA LATERAL from 12/06/2024 FINDINGS: MEDIASTINUM: Normal. HEART: Normal. PULMONARY VASCULATURE: Normal. LUNGS: Clear. PLEURAL SPACE: No pleural effusion or pneumothorax. BONE:Within normal limits for the patient's age. OTHER FINDINGS:Normal. IMPRESSION: No acute pulmonary findings. DATA REPOSITORY: RADIATION DOSE DELIVERED:
[2025-05-05] MEDS: nitroGLYcerin 0.4 MG TAB SL ×3 (14:24→14:42)
[2025-05-05] MEDS: Aspirin 81 MG CHEW 324 MG CH (14:24)
--- NOTE | 2025-05-05 14:26 | ED.GENADUL_ITS ---
Discharge Plan Disposition Patient Disposition: Admit to [facility] Discharge Details Clinical Impression: Acute non-ST elevation myocardial infarction (NSTEMI), Smoker, Hypertension Primary Care Provider: Hanna Mcneill ED Provider: Alexy Gibson Home Meds and New Rx's Prescriptions: No Action diazepam 10 mg tablet 10 mg PO DAILY PRN (Reason: anxiety) Qty: 10 0RF omeprazole 20 mg capsule,delayed release(DR/EC) 20 mg PO DAILY Qty: 90 4RF ibuprofen 200 mg tablet 200 mg PO Q6H PRN triamcinolone acetonide 0.05 % ointment 1 applic topical BID 7 Days Qty: 1 1RF levothyroxine 175 mcg tablet 175 mcg PO DAILY Qty: 90 3RF Rx Instructions: 175mcg total daily clonidine 0.1 mg/24 hr patch weekly 1 patch transdermal QWEEK Qty: 12 3RF spironolactone 25 mg tablet 25 mg PO BID Qty: 90 4RF losartan 100 mg tablet 100 mg PO DAILY Qty: 90 3RF cephalexin 500 mg tablet 500 mg PO DAILY Qty: 90 3RF verapamil 360 mg capsule,ext rel. pellets 24 hr 360 mg PO QAM Qty: 90 3RF hydrochlorothiazide 25 mg tablet 25 mg PO DAILY Qty: 90 4RF ergocalciferol (vitamin D2) 1,250 mcg (50,000 unit) capsule 50,000 unit PO QWEEK Qty: 13 0RF acetaminophen 500 MG tablet 1,000 mg PO BID PRN HPI General Date/Time Provider Initiated Documentation: 05/05/25 14:17 . Limitations to Documentation: no limitations . Information obtained by: patient . HPI Narrative: 59-year-old female with past medical history of hypertension, thyroid neoplasm, smoking, presents for evaluation of chest pain. She reports that has been ongoing since yesterday. It waxes and wanes in severity. She states that yesterday it was not as bad as today. She reports that today it started after helping give her patient to shower and then taking a shower herself. She states that it is 10 out of 10. It is a numb heavy sensation in her left arm that radiates into her chest. She reports that yesterday she did have some shortness of breath. But does not now. Earlier this morning she did have sweating. No nausea or vomiting. She has never had pain like this before. She denies any prior cardiac evaluation. Related Data Home Medications ?Medication ?Instructions ?Recorded ?Confirmed acetaminophen 500 mg tablet 1,000 mg PO BID PRN 09/02/16 05/05/25 diazepam 10 mg tablet 10 mg PO DAILY PRN anxiety #10 tabs 01/21/24 05/05/25 ibuprofen 200 mg tablet 200 mg PO Q6H PRN 07/24/24 05/05/25 triamcinolone acetonide 0.05 % 1 applic topical BID 7 days #1 ea 09/18/24 05/05/25 topical ointment levothyroxine 175 mcg tablet 175 mcg PO DAILY #90 tab-caps 09/28/24 05/05/25 cephalexin 500 mg tablet 500 mg PO DAILY #90 tabs 10/26/24 05/05/25 clonidine 0.1 mg/24 hr weekly 1 patch transdermal QWEEK #12 ea 10/26/24 05/05/25 transdermal patch losartan 100 mg tablet 100 mg PO DAILY #90 tabs 10/26/24 05/05/25 spironolactone 25 mg tablet 25 mg PO BID #90 tabs 10/26/24 05/05/25 omeprazole 20 mg capsule,delayed 20 mg PO DAILY #90 caps 11/12/24 05/05/25 release verapamil 360 mg 24 hr 360 mg PO QAM #90 caps 12/21/24 05/05/25 capsule,extended release hydrochlorothiazide 25 mg tablet 25 mg PO DAILY hypertension #90 02/17/25 05/05/25 tabs ergocalciferol (vitamin D2) 1,250 50,000 unit PO QWEEK #13 caps 03/24/25 05/05/25 mcg (50,000 unit) capsule Previous Rx's ?Medication ?Instructions ?Recorded diazepam 10 mg tablet 10 mg PO DAILY PRN anxiety #10 tabs 01/21/24 triamcinolone acetonide 0.05 % 1 applic topical BID 7 days #1 ea 09/18/24 topical ointment levothyroxine 175 mcg tablet 175 mcg PO DAILY #90 tab-caps 09/28/24 cephalexin 500 mg tablet 500 mg PO DAILY #90 tabs 10/26/24 clonidine 0.1 mg/24 hr weekly 1 patch transdermal QWEEK #12 ea 10/26/24 transdermal patch losartan 100 mg tablet 100 mg PO DAILY #90 tabs 10/26/24 spironolactone 25 mg tablet 25 mg PO BID #90 tabs 10/26/24 omeprazole 20 mg capsule,delayed 20 mg PO DAILY #90 caps 11/12/24 release verapamil 360 mg 24 hr 360 mg PO QAM #90 caps 12/21/24 capsule,extended release hydrochlorothiazide 25 mg tablet 25 mg PO DAILY hypertension #90 02/17/25 tabs ergocalciferol (vitamin D2) 1,250 50,000 unit PO QWEEK #13 caps 03/24/25 mcg (50,000 unit) capsule Allergies Allergy/AdvReac Type Severity Reaction Status Date / Time varenicline Allergy Intermediate SKIN RASH Verified 05/05/25 13:58 amlodipine AdvReac Mild edema Verified 05/05/25 13:58 Penicillins AdvReac Other (See Verified 05/05/25 13:58 Comment) General Stated Complaint: Chest Pain SARAY: 3 Exam Narrative Exam Narrative: Review of Systems: All systems reviewed & are unremarkable except as noted in HPI and below Well-developed, no acute distress NCAT PERRL, normal conjunctiva RRR, hypertensive Unlabored respiratory effort, clear bilaterally Nondistended abdomen soft nontender Extremities w/o edema no focal neurologic deficits Course Vital Signs Vital signs: Vital Signs Temperature 36.7 C 05/05/25 13:58 Pulse 84 05/05/25 13:58 Respiratory Rate 22 05/05/25 13:58 Blood Pressure 192/117 H 05/05/25 13:58 Pulse Oximetry 97 05/05/25 13:58 Temperature 36.7 C 05/05/25 13:58 Temperature Source Oral 05/05/25 13:58 Pulse 84 05/05/25 13:58 Respiratory Rate 12 05/05/25 14:14 Respiratory Effort Normal, Non-Labored 05/05/25 14:14 Respiratory Depth Normal 05/05/25 14:14 Respiratory Pattern Normal 05/05/25 14:14 Blood Pressure 192/117 H 05/05/25 13:58 Pulse Oximetry 97 05/05/25 13:58 Oxygen Delivery Method Room Air 05/05/25 13:58 Oxygen Flow Rate 0 05/05/25 13:58 Pain Level 5 05/05/25 14:24 Medical Decision Making Emergent evaluation of chest pain. Patient has cardiac risk factors of age, obesity, smoking, hypertension. EKG reviewed and independently interpreted: Sinus 79 normal axis no acute ischemic changes. Patient is noted to be hypertensive here and I will give an additional oral dose of clonidine as I note that she is on a clonidine patch. The initial differential includes ACS, pneumonia, hypertensive emergency. Plan for labs, x-ray, cardiac monitoring. Will give full dose aspirin and nitroglycerin to elicit pain relief. Pain down to 1/10 after 3 nitroglycerin. Blood pressure is also improved. Initial troponin came back slightly elevated at 87. Will load with Plavix, statin. Second troponin pending. Depending on delta will discuss with hospitalist versus intermission coordinator at [facility]. Second troponin increased to 242. Heparin infusion has been started. Patient still reports. Pain is well-controlled. Discussed with cardiology at [facility]. Concur with plan and have accepted for admission. Accepting Dr. Lau. However bed placement will not likely occur until tomorrow. So patient will be admitted to this facility for further management until bed is ready at [facility]. Quality:SDOH Health Related Social Needs: Health related social needs details none mentioned Critical Care Time Critical Care Time Critical Care Time: Yes Total Critical Care Time: 33 Attestation: CRITICAL CARE Upon my evaluation, this patient had a high probability of imminent or life- threatening deterioration due to nSTEMI which required my direct attention, intervention, and personal management. I have personally provided 33 minutes of critical care time exclusive of time spent on separately billable procedures. Time includes review of laboratory data, radiology results, discussion with consultants, and monitoring for potential decompensation. Interventions were performed as documented above [facility] All Active Problems (Updated 05/05/25 @ 16:05 by Alexy Gibson MD) Hypertension (Chronic) Acute non-ST elevation myocardial infarction (NSTEMI) (Acute) Hoarseness or changing voice (Acute) Eczema of both external ears (Acute) Cerumen impaction (Acute) Otorrhea of right ear (Acute) Left foot pain (Acute) Low vitamin B12 level (Acute) Bilateral hearing loss due to cerumen impaction (Acute) Skin cyst (Acute) Bilateral hearing loss due to cerumen impaction (Acute) Skin lesion (Acute) Earlobe lesion (Acute) Vaginal atrophy (Chronic 11/04/17) Tinea corporis (Chronic 07/14/15) Smoker (Chronic) Primary malignant neoplasm of thyroid gland (Chronic 08/13/13) 08/30 THYROID U/S: NODULE papillary thyroid CA; S/P removal; now hypothyroid Plantar fascia syndrome (Chronic 05/03/16) Pilonidal cyst (Chronic 01/21/18) CHRONIC 02/20/18 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) Hypothyroidism (Chronic 08/13/13) Gout (Chronic 09/14/14) Essential hypertension (Chronic 11/13/13) Depressive disorder (Chronic 05/09/10) 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) Cervical pain (neck) (Chronic 10/27/15) Carpal tunnel syndrome (Chronic 02/28/12) 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) Pain of left hip (Acute 07/25/17) Onychomycosis (Chronic) Herpes zoster (Acute 03/19/13) Herpes simplex (Acute) Wet senile macular retinal degeneration (Acute) Snoring (Acute) Encounter for annual physical exam (Acute) Encounter for screening colonoscopy (Acute) Foot pain, bilateral (Acute) Vitamin D deficiency (Acute) Advance care planning (Acute) Trigger thumb, right thumb (Acute) Injected 09/11/2021 Hammer toe of left foot (Acute) Trochanteric bursitis, right hip (Acute) Medical History (Updated 05/05/25 @ 16:05 by Alexy Gibson MD) Sinus infection Cellulitis of left lower leg (09/02/16) Dysfunctional uterine bleeding (07/10/10) Ingrowing toenail (08/17/14) Left upper quadrant pain Rash of unknown cause (02/13/16) Abdominal pain, left upper quadrant Spasms; 01/27 Rib/Sternum films Neg Herpes simplex Onychomycosis toenails Dysfunctional uterine bleeding 07/10/10 Papillary thyroid carcinoma 08/25/13 Ingrown toenail 08/17/14 Rash of unknown cause 02/13/16 Cellulitis of left lower leg 09/02/16 Left hip pain 07/25/17 Annual physical exam (09/06/15) Chronic cystitis MULTIPLE CYSTS: AXILLA/LEGS/ETC. Herpes zoster (03/19/13) Malignant neoplasm of thyroid gland Surgical History History of eye surgery H/O surgical procedure right lobectomy; papillary ca; Dr. Fleming @[facility] H/O eye surgery Lobectomy (~08/2007) R LOBE-PUPILLARY CA; DR. FLEMING @ [facility] Excision, Pilonidal Cyst (02/20/18) EYE Family History (Updated 05/26/24 @ 16:08 by Eri Chris) Mother , 77 Diabetes Essential hypertension Heart disease ANEURSYM X 6 Dementia Father , 67 Diabetes Essential hypertension Heart disease Hyperlipidemia Sister Diabetes Brother Diabetes Essential hypertension Depression Brother Diabetes Essential hypertension Social History (Updated 05/26/24 @ 16:08 by Eri Chris) Smoking/Tobacco Use Status: Current every day Tobacco Type: cigarettes Smoking packs per day: 0.5 Smoking cigarettes per day: 10.0 Years smoked: 38 Smoking pack-years: 19.00 Tobacco: How many years used: 39 Quit status: not considering quitting Second Hand Exposure: Yes Counseling given: provider counseling Smoking risk assessment performed?: Yes Alcohol Intake: former Drug use: Never Substance use type: does not use Details: occasional edible Adopted: No Caregiver/Support person: No Household members: spouse Housing: other Details: Mobile Home Communication Needs: None Education Level: high school Do you need help understanding health information?: Never current occupation: works packing eggs Pets and animals: Yes Pets and animals: dog(s) Sexually active: Yes Do you think of yourself as: straight/heterosexual Current gender identity: female What is your relationship status?: How often do you talk on the phone with friends or family?: three or more times per week How often do you get together with friends or relatives?: once per week Do you belong to any clubs or organized social groups?: yes Panel score (0-1 are the most socially isolated patients): 3 Binta/Adventist: Lutheran Special binta needs: No Seatbelt use: always Helmet use: No Drive intox or ride w/intox mail truck driver: No Firearms in home: Yes Firearms unloaded and locked: Yes Do you feel safe at home: Yes Do you feel safe in your relationship?: Yes Victim of physical abuse: No Victim of emotional abuse: No Victim of sexual abuse: No Would you like helpful sources: No
[2025-05-05 14:27] LABS: Abs Immature Grans 0.03 10^3/uL (0.0-0.06); Absolute Basophil Count 0.11 10^3/uL (0.0-0.2); Absolute Eosinophil Count 0.43 10^3/uL (0.0-0.7); Absolute Lymphocyte Count 3.24 10^3/uL (1.2-3.4); Absolute Monocyte Count 0.79 10^3/uL (0.1-0.8); Absolute Neutrophil Count 7.22 10^3/uL (1.2-6.7); Basophils % 0.9 %; Eosinophils % 3.6 %; HGB 15.1 g/dL (11.2-15.7); Immature Grans % 0.3 %; Lymphocytes % 27.4 %; MCHC 34.3 % (32.0-36.0); MCV 90 fL (80-95); MPV 9.1 fL (8.0-11.0); Monocytes % 6.7 %; Neutrophils % 61.1 %; Platelet Count 352 10^3/uL (130-400); RBC 4.87 10^6/uL (3.93-5.22); RDW 12.9 % (11.7-14.6); RDW-SD 42.6 fL; WBC 11.81 10^3/uL (4.4-10.8)
[2025-05-05] MEDS: cloNIDine 0.1 MG TAB PO (14:29)
[2025-05-05 14:46] LABS: PTT Activated 26.8 sec (20.6-30.2); Prothrombin Time 10.3 sec (9.1-11.1)
[2025-05-05 14:58] LABS: ALT 45 U/L (14-59); AST 20 U/L (15-37); Albumin 4.3 g/dL (3.4-5.0); Alkaline Phosphatase 90 U/L (46-116); Anion Gap 11.6 mmol/L (3-11); BUN 25 mg/dL (7-18); Bilirubin, Total 0.4 mg/dL (0.2-1.0); CO2 27.4 mmol/L (21.0-32.0); CREATININE 1.3 mg/dL (0.55-1.02); Calcium 9.5 mg/dL (8.5-10.1); Chloride 103 mmol/L (98-107); Estimated GFR 47.96 (mL/min/1.73m2); Glucose 123 mg/dL (74-106); Lipase 46 U/L (<78); Magnesium 1.7 mg/dL (1.8-2.4); NT-proBNP 219 pg/mL (<300); Potassium 3.9 mmol/L (3.5-5.1); Sodium 142 mmol/L (136-145); Total Protein 8.2 g/dL (6.4-8.2)
[2025-05-05 15:01] LABS: Troponin I 87 ng/L (<or=51)
[2025-05-05] MEDS: Clopidogrel 300 MG TAB 600 MG PO (15:07)
[2025-05-05] MEDS: Atorvastatin 40 MG TAB 80 MG PO (15:07)
[2025-05-05 15:39] LABS: Troponin I 242 ng/L (<or=51)
[2025-05-05] MEDS: Heparin in 0.45% NaCl 25,000 UNIT/250 ML BAG 10 UNIT IVINF (15:45)
[2025-05-05] MEDS: nitroGLYcerin 2% 1 INCH/1 GM PKT TP (15:56)
--- NOTE | 2025-05-05 16:08 | W.PM.HP.N ---
Date of service: 05/05/25 Time of Service: 16:08 Assessment and Plan Assessment and plan (1) Acute non-ST elevation myocardial infarction (NSTEMI): Status: Acute Assessment and plan: - Patient having NSTEMI as there were no EKG changes but significant troponin elevation at this time up to 242 - Patient was given 324 mg aspirin, sublingual nitro, 600 mg clopidogrel, started on heparin drip in the emergency department - Will continue daily aspirin, daily Plavix and heparin drip - Case discussed with [facility] cardiology who accepted patient for transfer for left heart catheterization once a bed is available, likely 05/06/2025 - Nitro placed was placed on patient for chest pain, will administer additional doses as needed (2) Hypertension: Status: Chronic Assessment and plan: - Continue home antihypertensives including HCTZ, losartan, spironolactone, verapamil (3) GERD (gastroesophageal reflux disease): Status: Chronic Assessment and plan: - Continue home PPI History of Present Illness History of Present Illness Chief Complaint: chest pain Narrative: 59-year-old female with a past medical history of hypertension, GERD who presents to the emergency department complaints of chest pain. Patient states that she began to experience chest pain beginning yesterday on 05/04/2025 that waxes and wanes in severity but was not that bad. However, that beginning today after helping a patient work he did take a shower she began to have substernal chest pain rated 10 out of 10 with a numb heavy sensation radiating to her left arm. She states that yesterday she does have some associated shortness of breath but that is not present at this time. She denies any nausea or vomiting, lightheadedness or dizziness. In the emergency department patient was noted as having normal vital signs with the exception of elevated blood pressure of 210/118, with otherwise normal CBC and CMP. EKG was done and without any ST elevations, ST depressions or T wave inversions. However, initial troponin came back at 87 with repeat of 242. Patient was given 324 mg aspirin, sublingual nitro which significantly improved her pain down to a 1 out of 10, 80 mg of statin, 600 mg of clopidogrel and was started on heparin drip. Additionally, emergency room provider reached out to [facility] discussed with her well cleaner who accepted the patient for cardiac catheterization once a bed is available likely tomorrow 05/06/2025. At which time emergency room physician paged hospitalist for admission of the patient with an NSTEMI. Review of Systems All systems reviewed & are unremarkable except as noted in HPI and below PFSH All Active Problems (Updated 05/05/25 @ 16:39 by Sandeep Smith MD) GERD (gastroesophageal reflux disease) (Chronic) Hypertension (Chronic) Acute non-ST elevation myocardial infarction (NSTEMI) (Acute) Hoarseness or changing voice (Acute) Eczema of both external ears (Acute) Cerumen impaction (Acute) Otorrhea of right ear (Acute) Left foot pain (Acute) Low vitamin B12 level (Acute) Bilateral hearing loss due to cerumen impaction (Acute) Skin cyst (Acute) Bilateral hearing loss due to cerumen impaction (Acute) Skin lesion (Acute) Earlobe lesion (Acute) Vaginal atrophy (Chronic 11/04/17) Tinea corporis (Chronic 07/14/15) Smoker (Chronic) Primary malignant neoplasm of thyroid gland (Chronic 08/13/13) 08/30 THYROID U/S: NODULE papillary thyroid CA; S/P removal; now hypothyroid Plantar fascia syndrome (Chronic 05/03/16) Pilonidal cyst (Chronic 01/21/18) CHRONIC 02/20/18 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) Hypothyroidism (Chronic 08/13/13) Gout (Chronic 09/14/14) Essential hypertension (Chronic 11/13/13) Depressive disorder (Chronic 05/09/10) 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) Cervical pain (neck) (Chronic 10/27/15) Carpal tunnel syndrome (Chronic 02/28/12) 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) Pain of left hip (Acute 07/25/17) Onychomycosis (Chronic) Herpes zoster (Acute 03/19/13) Herpes simplex (Acute) Wet senile macular retinal degeneration (Acute) Snoring (Acute) Encounter for annual physical exam (Acute) Encounter for screening colonoscopy (Acute) Foot pain, bilateral (Acute) Vitamin D deficiency (Acute) Advance care planning (Acute) Trigger thumb, right thumb (Acute) Injected 09/11/2021 Hammer toe of left foot (Acute) Trochanteric bursitis, right hip (Acute) Medical History (Updated 05/05/25 @ 16:39 by Sandeep Smith MD) Sinus infection Cellulitis of left lower leg (09/02/16) Dysfunctional uterine bleeding (07/10/10) Ingrowing toenail (08/17/14) Left upper quadrant pain Rash of unknown cause (02/13/16) Abdominal pain, left upper quadrant Spasms; 01/27 Rib/Sternum films Neg Herpes simplex Onychomycosis toenails Dysfunctional uterine bleeding 07/10/10 Papillary thyroid carcinoma 08/25/13 Ingrown toenail 08/17/14 Rash of unknown cause 02/13/16 Cellulitis of left lower leg 09/02/16 Left hip pain 07/25/17 Annual physical exam (09/06/15) Chronic cystitis MULTIPLE CYSTS: AXILLA/LEGS/ETC. Herpes zoster (03/19/13) Malignant neoplasm of thyroid gland Surgical History History of eye surgery H/O surgical procedure right lobectomy; papillary ca; Dr. Fleming @[facility] [place] H/O eye surgery Lobectomy (~08/2007) R LOBE-PUPILLARY CA; DR. FLEMING @ [facility] [place] Excision, Pilonidal Cyst (02/20/18) EYE Family History (Updated 05/26/24 @ 16:08 by Eri Chris) Mother , 77 Diabetes Essential hypertension Heart disease ANEURSYM X 6 Dementia Father , 67 Diabetes Essential hypertension Heart disease Hyperlipidemia Sister Diabetes Brother Diabetes Essential hypertension Depression Brother Diabetes Essential hypertension Social History (Updated 05/26/24 @ 16:08 by Eri Chris) Smoking/Tobacco Use Status: Current every day Tobacco Type: cigarettes Smoking packs per day: 0.5 Smoking cigarettes per day: 10.0 Years smoked: 38 Smoking pack-years: 19.00 Tobacco: How many years used: 39 Quit status: not considering quitting Second Hand Exposure: Yes Counseling given: provider counseling Smoking risk assessment performed?: Yes Alcohol Intake: former Drug use: Never Substance use type: does not use Details: occasional edible Adopted: No Caregiver/Support person: No Household members: spouse Housing: other Details: Mobile Home Communication Needs: None Education Level: high school Do you need help understanding health information?: Never current occupation: works packing eggs Pets and animals: Yes Pets and animals: dog(s) Sexually active: Yes Do you think of yourself as: straight/heterosexual Current gender identity: female What is your relationship status?: How often do you talk on the phone with friends or family?: three or more times per week How often do you get together with friends or relatives?: once per week Do you belong to any clubs or organized social groups?: yes Panel score (0-1 are the most socially isolated patients): 3 Binta/Yazdanism: Taoism Special binta needs: No Seatbelt use: always Helmet use: No Drive intox or ride w/intox reach lift truck driver: No Firearms in home: Yes Firearms unloaded and locked: Yes Do you feel safe at home: Yes Do you feel safe in your relationship?: Yes Victim of physical abuse: No Victim of emotional abuse: No Victim of sexual abuse: No Would you like helpful sources: No Meds Allergies and Home Medications Allergies Allergy/AdvReac Type Severity Reaction Status Date / Time varenicline Allergy Intermediate SKIN RASH Verified 05/05/25 13:58 amlodipine AdvReac Mild edema Verified 05/05/25 13:58 Penicillins AdvReac Other (See Verified 05/05/25 13:58 Comment) Home Medications ?Medication ?Instructions ?Recorded ?Confirmed ?Type acetaminophen 500 mg tablet 1,000 mg PO BID PRN 09/02/16 05/05/25 History diazepam 10 mg tablet 10 mg PO DAILY PRN anxiety #10 tabs 01/21/24 05/05/25 Rx ibuprofen 200 mg tablet 200 mg PO Q6H PRN 07/24/24 05/05/25 History triamcinolone acetonide 0.05 % 1 applic topical BID 7 days #1 ea 09/18/24 05/05/25 Rx topical ointment levothyroxine 175 mcg tablet 175 mcg PO DAILY #90 tab-caps 09/28/24 05/05/25 Rx cephalexin 500 mg tablet 500 mg PO DAILY #90 tabs 10/26/24 05/05/25 Rx clonidine 0.1 mg/24 hr weekly 1 patch transdermal QWEEK #12 ea 10/26/24 05/05/25 Rx transdermal patch losartan 100 mg tablet 100 mg PO DAILY #90 tabs 10/26/24 05/05/25 Rx spironolactone 25 mg tablet 25 mg PO BID #90 tabs 10/26/24 05/05/25 Rx omeprazole 20 mg capsule,delayed 20 mg PO DAILY #90 caps 11/12/24 05/05/25 Rx release verapamil 360 mg 24 hr 360 mg PO QAM #90 caps 12/21/24 05/05/25 Rx capsule,extended release hydrochlorothiazide 25 mg tablet 25 mg PO DAILY hypertension #90 02/17/25 05/05/25 Rx tabs ergocalciferol (vitamin D2) 1,250 50,000 unit PO QWEEK #13 caps 03/24/25 05/05/25 Rx mcg (50,000 unit) capsule Exam Narrative Exam Narrative: Well-appearing older female laying in bed in no acute distress, ANO x 4, heart regular rhythm, lungs good auscultation bilaterally, abdomen soft, nontender, nondistended Results Labs 05/05/25 14:15 05/05/25 14:15 Labs: Laboratory Results - last 24 hr 05/05/25 05/05/25 14:15 15:12 WBC 11.81 H RBC 4.87 Hgb 15.1 Hct 44.0 MCV 90 MCH 31.0 MCHC 34.3 RDW 12.9 Plt Count 352 MPV 9.1 Immature Gran % 0.3 Neutrophils % 61.1 Lymphocytes % 27.4 Monocytes % 6.7 Eosinophils % 3.6 Basophils % 0.9 Nucleated RBC % 0.0 Absolute Neutrophils 7.22 H Absolute Lymphocytes 3.24 Absolute Monocytes 0.79 Absolute Eosinophils 0.43 Absolute Basophils 0.11 PT 10.3 INR 1.0 APTT 26.8 Sodium 142 Potassium 3.9 Chloride 103 Carbon Dioxide 27.4 Anion Gap 11.6 H BUN 25 H Creatinine 1.3 H Est GFR (CKD-EPI 2020) 47.96 Glucose 123 H Calcium 9.5 Magnesium 1.7 L Total Bilirubin 0.4 AST 20 ALT 45 Alkaline Phosphatase 90 Troponin I 87 H* 242 H* NT-Pro-B Natriuret Pep 219 Total Protein 8.2 Albumin 4.3 Lipase 46 Last Vital Signs Temp 98.1 F 05/05/25 13:58 Pulse 69 05/05/25 16:01 Resp 14 05/05/25 16:01 BP 180/98 H 05/05/25 16:00 Pulse Ox 95 05/05/25 16:01 Time Spent Time spent with Patient: >75 minutes Time was spent: preparing to see the patient(eg.review tests), obtaining and/or reviewing separately otained hiistory, ordering medications,tests, procedures, referring, communicating with other health patient centered care specialist, indepentently interpreting results, counseling the patient and care coordination
--- NOTE | 2025-05-05 17:36 | W.PC.ACHO ---
Registration Status: Primary Language: Preferred Language: ED Information & Data Chief Complaint Chest Pain 05/05/25 14:31 Triage Note CP started yesterday, went 05/05/25 13:58 away. When she got out of shower (1230) started again. Reports feeling numbness in left arm as well and arms feeling heavy. Denies dizziness, NV, SOB today. Did feel dizzy the other day . 4/10 pain right now, when it gets worse, can get up to a 10. Worse with exertion. Medical / Surgical History (Last Reviewed 11/24/22 @ 12:11 by Amado Miranda) Sinus infection Cellulitis of left lower leg (09/02/16) Dysfunctional uterine bleeding (07/10/10) Ingrowing toenail (08/17/14) Left upper quadrant pain Rash of unknown cause (02/13/16) Abdominal pain, left upper quadrant Herpes simplex Onychomycosis Dysfunctional uterine bleeding Papillary thyroid carcinoma Ingrown toenail Rash of unknown cause Cellulitis of left lower leg Left hip pain Annual physical exam (09/06/15) Chronic cystitis Herpes zoster (03/19/13) Malignant neoplasm of thyroid gland (Last Reviewed 11/24/22 @ 12:11 by Amado Miranda) History of eye surgery H/O surgical procedure H/O eye surgery Lobectomy (~08/2007) Excision, Pilonidal Cyst (02/20/18) EYE Most Recent Vital Signs Temperature 36.8 C 05/05/25 17:09 Temperature Source Temporal Artery Scan 05/05/25 17:09 Pulse 77 05/05/25 17:09 Pulse 78 05/05/25 17:01 Respiratory Rate 16 05/05/25 17:01 Respiratory Effort Normal 05/05/25 17:09 Respiratory Depth Normal 05/05/25 17:09 Respiratory Pattern Normal 05/05/25 17:09 Blood Pressure 168/106 H 05/05/25 17:09 Blood Pressure Mean 126 05/05/25 17:09 Blood Pressure Position Sitting 05/05/25 17:09 Pulse Oximetry 96 05/05/25 17:09 Oxygen Delivery Method Room Air 05/05/25 17:09 Oxygen Flow Rate 0 05/05/25 17:09 Pain Level 0 05/05/25 17:09 Allergies varenicline Allergy (Intermediate, Verified 05/05/25 13:58) SKIN RASH amlodipine Adverse Reaction (Mild, Verified 05/05/25 13:58) edema Penicillins Adverse Reaction (Verified 05/05/25 13:58) Other (See Comment) Precautions Isolation Standard precaution 05/05/25 14:20 Active Medications Generic Name Dose Route Start Last Admin Trade Name Freq PRN Reason Stop Dose Admin Heparin Sodium/Sodium Chloride 25,000 unit in 250 mls @ 10 mls/hr 05/05/25 15:45 05/05/25 15:45 IVINF 1,000 units/hr INFUSION GALE 10 mls/hr Administration Protocol 1,000 UNITS/HR Nitroglycerin 0.4 mg 05/05/25 14:19 05/05/25 14:42 Nitroglycerin 0.4 Mg Tab SL 0.4 mg Q5 MIN PRN X3 PRN Administration IV IV Catheter Type [Left Wrist] Saline Lock IV Catheter Type [Right Peripheral IV Antecubital] IV Catheter Gauge [Left Wrist] 20 IV Catheter Gauge [Right 18 Antecubital] Diet Orders Category Date Time Status Heart Healthy Eating [DIET] Nutrition 05/05/25 Dinner Active Nothing Per Oral [DIET] Nutrition 05/06/25 Breakfast Ordered Diagnostics 05/05/25 05/05/25 05/05/25 Range/Units 21:45 17:20 17:07 WBC (4.4-10.8) 10^3/uL RBC (3.93-5.22) 10^6/uL Hgb (11.2-15.7) g/dL Hct (36.0-46.0) % MCV (80-95) fL MCH (27.0-33.0) pg MCHC (32.0-36.0) % RDW (11.7-14.6) % Plt Count (130-400) 10^3/uL MPV (8.0-11.0) fL Immature Gran % % Neutrophils % % Lymphocytes % % Monocytes % % Eosinophils % % Basophils % % Nucleated RBC % (0.0-0.3) % Absolute Neutrophils (1.2-6.7) 10^3/uL Absolute Lymphocytes (1.2-3.4) 10^3/uL Absolute Monocytes (0.1-0.8) 10^3/uL Absolute Eosinophils (0.0-0.7) 10^3/uL Absolute Basophils (0.0-0.2) 10^3/uL PT (9.1-11.1) sec INR (0.9-1.1) APTT Pending (20.6-30.2) sec Sodium (136-145) mmol/L Potassium (3.5-5.1) mmol/L Chloride (98-107) mmol/L Carbon Dioxide (21.0-32.0) mmol/L Anion Gap (3-11) mmol/L BUN (7-18) mg/dL Creatinine (0.55-1.02) mg/dL Est GFR (CKD-EPI 2020) (mL/min/1.73m2) Glucose (74-106) mg/dL Calcium (8.5-10.1) mg/dL Magnesium (1.8-2.4) mg/dL Total Bilirubin (0.2-1.0) mg/dL AST (15-37) U/L ALT (14-59) U/L Alkaline Phosphatase (46-116) U/L Troponin I Cancelled Pending (<or=51) ng/L NT-Pro-B Natriuret Pep (<300) pg/mL Total Protein (6.4-8.2) g/dL Albumin (3.4-5.0) g/dL Lipase (<78) U/L 05/05/25 05/05/25 Range/Units 15:12 14:15 WBC 11.81 H (4.4-10.8) 10^3/uL RBC 4.87 (3.93-5.22) 10^6/uL Hgb 15.1 (11.2-15.7) g/dL Hct 44.0 (36.0-46.0) % MCV 90 (80-95) fL MCH 31.0 (27.0-33.0) pg MCHC 34.3 (32.0-36.0) % RDW 12.9 (11.7-14.6) % Plt Count 352 (130-400) 10^3/uL MPV 9.1 (8.0-11.0) fL Immature Gran % 0.3 % Neutrophils % 61.1 % Lymphocytes % 27.4 % Monocytes % 6.7 % Eosinophils % 3.6 % Basophils % 0.9 % Nucleated RBC % 0.0 (0.0-0.3) % Absolute Neutrophils 7.22 H (1.2-6.7) 10^3/uL Absolute Lymphocytes 3.24 (1.2-3.4) 10^3/uL Absolute Monocytes 0.79 (0.1-0.8) 10^3/uL Absolute Eosinophils 0.43 (0.0-0.7) 10^3/uL Absolute Basophils 0.11 (0.0-0.2) 10^3/uL PT 10.3 (9.1-11.1) sec INR 1.0 (0.9-1.1) APTT 26.8 (20.6-30.2) sec Sodium 142 (136-145) mmol/L Potassium 3.9 (3.5-5.1) mmol/L Chloride 103 (98-107) mmol/L Carbon Dioxide 27.4 (21.0-32.0) mmol/L Anion Gap 11.6 H (3-11) mmol/L BUN 25 H (7-18) mg/dL Creatinine 1.3 H (0.55-1.02) mg/dL Est GFR (CKD-EPI 2020) 47.96 (mL/min/1.73m2) Glucose 123 H (74-106) mg/dL Calcium 9.5 (8.5-10.1) mg/dL Magnesium 1.7 L (1.8-2.4) mg/dL Total Bilirubin 0.4 (0.2-1.0) mg/dL AST 20 (15-37) U/L ALT 45 (14-59) U/L Alkaline Phosphatase 90 (46-116) U/L Troponin I 242 H* 87 H* (<or=51) ng/L NT-Pro-B Natriuret Pep 219 (<300) pg/mL Total Protein 8.2 (6.4-8.2) g/dL Albumin 4.3 (3.4-5.0) g/dL Lipase 46 (<78) U/L Intake and Output - 24 Hour Total 05/05/25 13:56 thru 05/05/25 17:09 Weight 108.8 kg Other: Urine Color Yellow Urine Appearance Clear Urine Odor None Falls Risk Assessment History of Falls No History 05/05/25 17:09 Contributing Factors No Factors 05/05/25 17:09 Ambulatory Aids Independent 05/05/25 17:09 Tubes/Lines W/no contributing factors 05/05/25 17:09 Gait Evaluation No gait disturbance 05/05/25 17:09 Cognition No cognitive impairment 05/05/25 17:09 Fall Total Score 10 05/05/25 17:09 Level of Risk Standard/Low Risk 05/05/25 17:09 Problems GERD (gastroesophageal reflux disease) (Chronic) Hypertension (Chronic) Acute non-ST elevation myocardial infarction (NSTEMI) (Acute) Smoker (Chronic) v v v v v v v v v Sending and/or Receiving Nurses: Please use comment section below to note any information pertinent to the patient hand-off not included above. Information / Comments: Report received from: Fred Brown RN
[2025-05-05 17:44] LABS: Troponin I 614 ng/L (<or=51)
[2025-05-05] MEDS: Acetaminophen 325 MG TAB PO ×2 (18:12→22:28)
[2025-05-05] MEDS: Spironolactone 25 MG TAB PO (19:29)
[2025-05-05] MEDS: Normal Saline Flush 10 ML SYR IVP (19:29)
[2025-05-05] MEDS: Ibuprofen 200 MG TAB PO (22:28)
[2025-05-05 23:00] LABS: PTT Activated 40.8 sec (20.6-30.2)
[2025-05-06] VITALS (74 sets, daily range): BP systolic 95–154; BP diastolic 60–103; PULSE 26–79; RESP 10–26; TEMP 35.9–36.6; O2SAT 86–97
[2025-05-06] MEDS: Acetaminophen 325 MG TAB PO ×3 (02:32→10:18)
[2025-05-06] MEDS: Heparin in 0.45% NaCl 25,000 UNIT/250 ML BAG 12 UNIT IVINF (05:25)
[2025-05-06] MEDS: Ibuprofen 200 MG TAB PO (05:25)
[2025-05-06] MEDS: Levothyroxine 175 MCG TAB PO (05:25)
[2025-05-06 05:50] LABS: PTT Activated 66.9 sec (20.6-30.2)
[2025-05-06 05:56] LABS: HCT 37.5 % (36.0-46.0); HGB 12.6 g/dL (11.2-15.7); MCH 30.7 pg (27.0-33.0); MCHC 33.6 % (32.0-36.0); MCV 92 fL (80-95); MPV 9.2 fL (8.0-11.0); Platelet Count 273 10^3/uL (130-400); RDW 13.2 % (11.7-14.6); RDW-SD 44.2 fL
[2025-05-06 06:02] LABS: Anion Gap 8.3 mmol/L (3-11); BUN 26 mg/dL (7-18); CO2 28.7 mmol/L (21.0-32.0); CREATININE 1.2 mg/dL (0.55-1.02); Calcium 9.1 mg/dL (8.5-10.1); Chloride 103 mmol/L (98-107); Glucose 125 mg/dL (74-106); Potassium 4.1 mmol/L (3.5-5.1); Sodium 140 mmol/L (136-145)
[2025-05-06] MEDS: Omeprazole 20 MG CAPCR PO (06:35)
[2025-05-06 06:47] LABS: Troponin I 519 ng/L (<or=51)
[2025-05-06] MEDS: Aspirin E.C. 81 MG TABEC PO (07:58)
[2025-05-06] MEDS: Verapamil C.R. 180 MG TABCR 360 MG PO (07:58)
[2025-05-06] MEDS: Normal Saline Flush 10 ML SYR IVP ×2 (07:58→20:13)
[2025-05-06] MEDS: Losartan 50 MG TAB 100 MG PO (07:58)
[2025-05-06] MEDS: Spironolactone 25 MG TAB PO ×2 (07:59→20:13)
[2025-05-06] MEDS: hydroCHLOROthiazide 25 MG TAB PO (07:59)
[2025-05-06] MEDS: Clopidogrel 75 MG TAB PO (07:59)
--- NOTE | 2025-05-06 08:24 | PDOC.CMIN ---
Date of service: 05/06/25 Time of Service: 08:24 Care Management Initial Assmt Initial Assessment Reason for Hospitalization: NSTEMI Functional Status/Living Situation Patient Presentation: Chanelle presented to the ED yesterday afternoon with c/o chest pain. She described it as a numb heavy sensation in her left arm that radiated to her chest. She did also have some sweating and shortness of breath. She was found to have an NSTEMI. Today Chanelle was lying in bed, visiting with her , Varghese, when CM met with her. Both were very pleasant. Chanelle stated that she was feeling a lot better than she did yesterday, and also stated how scared she was when she realized she was having a heart attack. She is anxious to get to [facility] [place]. Town of Residence: [place] Resides with: Spouse (Varghese) Natural Supports: family Employment Status: Employed (is a personal animal care worker) Instrumental Activities of Daily Living (ADLs): Independent Medications Medication Management: No Issues/Barriers identified Physical Functioning/Mobility Assistive Device: none Advance Directives Advance Directives: Do you have an Advance Directive: Y 05/08/16, 06:31 AD On File at [facility]: Y 02/07/18, 21:40 Date Asked 11/24/1812/21/21, 07:36 AD Date Reviewed 05/05/25 05/05/25, 14:01 COLST On File at [facility] No 05/05/25, 14:01 COLST Date Scanned Code Status Resuscitation Status Full Code Insurance Coverage/Financial Issues Insurance: Medicaid of [place] Care Team Visit Care Team Role Provider Type Hanna Mcneill MD, ESTRADA Primary Care Provider [facility] Alexy Gibson MD Emergency Provider [facility] STAFF PHYSICIAN Sandeep Smith MD Admit Provider [facility] STAFF PHYSICIAN Attending Provider Discharge Potential Discharge Needs: PCP F/U Appt (cardiology follow up) Anticipated Barriers to Discharge: Bed availability (awaiting bed at [facility] [place]) Patient/Family Education Needs: Review discharge instructions, discuss Ask Me Three Transportation: EMS Plan: Chanelle is expected to transfer to [facility] once a bed is available. She will transport via EMS. CM will continue to follow. Social Determinants of Health Screening Social Determinants of health last assessed in clinic: 05/06/25 Will the Patient Participate in the Screening?: Yes Do you worry about having a steady place to live?: no Problems where you live: no known problems In the past 12 months, have you had to go without electric, gas, oil or water in your home?: no 1. Within the past 12 months, we worried whether our food would run out before we got money to buy more.: Don't know/refused 2. Within the past 12 months, the food we bought just didn't last and we didn't have money to get more.: Don't know/refused Has lack of transportation kept you from medical appointments or from doing things needed for daily living?: no Has anyone in your life made you feel unsafe or unsupported?: no How hard is it for you to pay for the very basics like food, housing, medical care, and heating? Would you say it is:: Not hard at all Do you want help finding or keeping work or a job?: I do not need or want help If for any reason you need help with day-to-day activities such as bathing, preparing meals, shopping, managing finances, etc., do you get the help you need?: I don?t need any help How often do you feel lonely or isolated from those around you?: Never Do you speak a language other than Mauritian at home?: No Does the patient want assistance with any of the above?: No PFSH All Active Problems (Updated 05/05/25 @ 16:39 by Sandeep Smith MD) GERD (gastroesophageal reflux disease) (Chronic) Hypertension (Chronic) Acute non-ST elevation myocardial infarction (NSTEMI) (Acute) Hoarseness or changing voice (Acute) Eczema of both external ears (Acute) Cerumen impaction (Acute) Otorrhea of right ear (Acute) Left foot pain (Acute) Low vitamin B12 level (Acute) Bilateral hearing loss due to cerumen impaction (Acute) Skin cyst (Acute) Bilateral hearing loss due to cerumen impaction (Acute) Skin lesion (Acute) Earlobe lesion (Acute) Vaginal atrophy (Chronic 11/04/17) Tinea corporis (Chronic 07/14/15) Smoker (Chronic) Primary malignant neoplasm of thyroid gland (Chronic 08/13/13) 08/30 THYROID U/S: NODULE papillary thyroid CA; S/P removal; now hypothyroid Plantar fascia syndrome (Chronic 05/03/16) Pilonidal cyst (Chronic 01/21/18) CHRONIC 02/20/18 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) Hypothyroidism (Chronic 08/13/13) Gout (Chronic 09/14/14) Essential hypertension (Chronic 11/13/13) Depressive disorder (Chronic 05/09/10) 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) Cervical pain (neck) (Chronic 10/27/15) Carpal tunnel syndrome (Chronic 02/28/12) 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) Pain of left hip (Acute 07/25/17) Onychomycosis (Chronic) Herpes zoster (Acute 03/19/13) Herpes simplex (Acute) Wet senile macular retinal degeneration (Acute) Snoring (Acute) Encounter for annual physical exam (Acute) Encounter for screening colonoscopy (Acute) Foot pain, bilateral (Acute) Vitamin D deficiency (Acute) Advance care planning (Acute) Trigger thumb, right thumb (Acute) Injected 09/11/2021 Hammer toe of left foot (Acute) Trochanteric bursitis, right hip (Acute) Medical History (Updated 05/05/25 @ 16:39 by Sandeep Smith MD) Sinus infection Cellulitis of left lower leg (09/02/16) Dysfunctional uterine bleeding (07/10/10) Ingrowing toenail (08/17/14) Left upper quadrant pain Rash of unknown cause (02/13/16) Abdominal pain, left upper quadrant Spasms; 01/27 Rib/Sternum films Neg Herpes simplex Onychomycosis toenails Dysfunctional uterine bleeding 07/10/10 Papillary thyroid carcinoma 08/25/13 Ingrown toenail 08/17/14 Rash of unknown cause 02/13/16 Cellulitis of left lower leg 09/02/16 Left hip pain 07/25/17 Annual physical exam (09/06/15) Chronic cystitis MULTIPLE CYSTS: AXILLA/LEGS/ETC. Herpes zoster (03/19/13) Malignant neoplasm of thyroid gland Surgical History History of eye surgery H/O surgical procedure right lobectomy; papillary ca; Dr. Fleming @[facility] [place] H/O eye surgery Lobectomy (~08/2007) R LOBE-PUPILLARY CA; DR. FLEMING @ [facility] [place] Excision, Pilonidal Cyst (02/20/18) EYE Family History (Updated 05/26/24 @ 16:08 by Eri Chris) Mother , 77 Diabetes Essential hypertension Heart disease ANEURSYM X 6 Dementia Father , 67 Diabetes Essential hypertension Heart disease Hyperlipidemia Sister Diabetes Brother Diabetes Essential hypertension Depression Brother Diabetes Essential hypertension Social History (Updated 05/26/24 @ 16:08 by Eri Chris) Smoking/Tobacco Use Status: Current every day Tobacco Type: cigarettes Smoking packs per day: 0.5 Smoking cigarettes per day: 10.0 Years smoked: 38 Smoking pack-years: 19.00 Tobacco: How many years used: 39 Quit status: not considering quitting Second Hand Exposure: Yes Counseling given: provider counseling Smoking risk assessment performed?: Yes Alcohol Intake: former Drug use: Never Substance use type: does not use Details: occasional edible Adopted: No Caregiver/Support person: No Household members: spouse Housing: other Details: Mobile Home Communication Needs: None Education Level: high school Do you need help understanding health information?: Never current occupation: works packing eggs Pets and animals: Yes Pets and animals: dog(s) Sexually active: Yes Do you think of yourself as: straight/heterosexual Current gender identity: female What is your relationship status?: How often do you talk on the phone with friends or family?: three or more times per week How often do you get together with friends or relatives?: once per week Do you belong to any clubs or organized social groups?: yes Panel score (0-1 are the most socially isolated patients): 3 Binta/Orthodoxy: Latter-Day Special binta needs: No Seatbelt use: always Helmet use: No Drive intox or ride w/intox local delivery driver: No Firearms in home: Yes Firearms unloaded and locked: Yes Do you feel safe at home: Yes Do you feel safe in your relationship?: Yes Victim of physical abuse: No Victim of emotional abuse: No Victim of sexual abuse: No Would you like helpful sources: No
[2025-05-06] MEDS: nitroGLYcerin 0.4 MG TAB SL (08:34)
[2025-05-06] MEDS: MORPHine 2 MG/ML SYR 1 MG IVP (10:39)
[2025-05-06] MEDS: Normal Saline 1,000 ML 75 ML IV (10:40)
[2025-05-06 12:00] LABS: PTT Activated 59.1 sec (20.6-30.2)
--- NOTE | 2025-05-06 15:58 | PGE_ITS ---
Date of Service Date of service: 05/06/25 Time of Service: 15:58 Assessment and Plan Assessment and plan (1) Acute non-ST elevation myocardial infarction (NSTEMI): Status: Acute Assessment and plan: - Patient having NSTEMI as there were no EKG changes but significant troponin elevation at this time up to 242 - Patient was given 324 mg aspirin, sublingual nitro, 600 mg clopidogrel, started on heparin drip in the emergency department - Will continue daily aspirin, daily Plavix and heparin drip - Case discussed with [facility] [place] [place] cardiology who accepted patient for transfer for left heart catheterization once a bed is available - Nitro placed was placed on patient for chest pain, patient developed severe PATEL, will now treat chest pain with PRN IV morphine (2) Hypertension: Status: Chronic Assessment and plan: - Continue home antihypertensives including HCTZ, losartan, spironolactone, verapamil (3) GERD (gastroesophageal reflux disease): Status: Chronic Assessment and plan: - Continue home PPI Subjective Subjective Interval history since last seen: Patient states that she is doing well and understands that we are still waiting to hear about bed availability at [facility] [place] [place]. Exam Narrative Exam Narrative: Well-appearing older female laying in bed in no acute distress, ANO x 4, heart regular rhythm, lungs good auscultation bilaterally, abdomen soft, nontender, nondistended Objective Last Vital Signs Temp 97.5 F L 05/06/25 12:04 Pulse 51 L 05/06/25 14:30 Resp 11 L 05/06/25 14:30 BP 95/60 L 05/06/25 14:02 Pulse Ox 93 05/06/25 14:30 Laboratory Results - last 24 hr 05/05/25 05/05/25 05/05/25 17:07 17:20 22:04 WBC RBC Hgb Hct MCV MCH MCHC RDW Plt Count MPV APTT 40.8 H Sodium Potassium Chloride Carbon Dioxide Anion Gap BUN Creatinine Est GFR (CKD-EPI 2020) Glucose Calcium Troponin I 614 H* Cancelled 05/06/25 05/06/25 05:16 11:39 WBC 9.50 RBC 4.10 Hgb 12.6 D Hct 37.5 MCV 92 MCH 30.7 MCHC 33.6 RDW 13.2 Plt Count 273 MPV 9.2 APTT 66.9 H 59.1 H Sodium 140 Potassium 4.1 Chloride 103 Carbon Dioxide 28.7 Anion Gap 8.3 BUN 26 H Creatinine 1.2 H Est GFR (CKD-EPI 2020) 52.80 Glucose 125 H Calcium 9.1 Troponin I 519 H* Time Spent with Patient Time Spent with Patient: >50 minutes Time was spent: preparing to see the patient(eg.review tests), obtaining and/or reviewing separately otained hiistory, ordering medications,tests, procedures, referring, communicating with other health direct care professional, indepentently interpreting results, counseling the patient and care coordination
--- NOTE | 2025-05-06 21:52 | DSE_ITS ---
Date of service: 05/06/25 Time of Service: 21:52 DS: Diagnosis Discharge Diagnosis (1) Acute non-ST elevation myocardial infarction (NSTEMI): Status: Acute (2) Hypertension: Status: Chronic (3) GERD (gastroesophageal reflux disease): Status: Chronic Discharge Plan Disposition Patient Disposition: Transfer-Acute Inpatient Care Specific Acute Inpt Facility: [facility] Condition: Stable Discharge Details Reason For Visit: NSTEMI Admit Date/Time: 05/05/25 16:07 Admit Provider: Sandeep Smith Attending Provider: Sandeep Smith Primary Care Provider: Hanna Mcneill [facility] Hospital Course: 59-year-old female with a past medical history of resistant hypertension, smoking, and GERD who presented to the emergency department complaints of chest pain starting the day prior. On presentation her blood pressure was 210/118. She did not have ischemic EKG changes but her troponins were positive at 87 to 242. Her pain improved with nitroglycerin and she was loaded with aspirin 324, clopidogrel 600mg, and started on a heparin drip. She was accepted by cardiology under Dr. Lau at [facility] pending bed availability. Her troponins maxed out at 614 05/05 before trending down to 519 on the morning of 05/06. She did have a severe headache after nitroglycerine dosing. PRN morphine was last given 05/06 at 10:40am. She did not have chest pain at the time of transfer. She was continued on her home blood pressure medication, and her blood pressure moderated, though more numbers were high later in the day. She may consider longer acting ARB and thiazide therapy upon discharge. Home Meds and New Rx's Prescriptions: No Action diazepam 10 mg tablet 10 mg PO DAILY PRN (Reason: anxiety) Qty: 10 0RF Patient Comments: Uses once a year after eye injection omeprazole 20 mg capsule,delayed release(DR/EC) 20 mg PO DAILY Qty: 90 4RF ibuprofen 200 mg tablet 200 mg PO Q6H PRN triamcinolone acetonide 0.05 % ointment 1 applic topical BID 7 Days Qty: 1 1RF levothyroxine 175 mcg tablet 175 mcg PO DAILY Qty: 90 3RF Rx Instructions: 175mcg total daily clonidine 0.1 mg/24 hr patch weekly 1 patch transdermal QWEEK Qty: 12 3RF Patient Comments: Uses on Sundays spironolactone 25 mg tablet 25 mg PO BID Qty: 90 4RF losartan 100 mg tablet 100 mg PO DAILY Qty: 90 3RF cephalexin 500 mg tablet 500 mg PO DAILY Qty: 90 3RF verapamil 360 mg capsule,ext rel. pellets 24 hr 360 mg PO QAM Qty: 90 3RF hydrochlorothiazide 25 mg tablet 25 mg PO DAILY Qty: 90 4RF ergocalciferol (vitamin D2) 1,250 mcg (50,000 unit) capsule 50,000 unit PO QWEEK Qty: 13 0RF acetaminophen 500 MG tablet 1,000 mg PO BID PRN Discharge Instructions Activity:: Activity as Tolerated Equipment/Supplies:: No Equipment Needed Diet:: Low Sodium Discharge Orders Discharge Orders: Discharge Order (Routine); Ordered 05/06/25 Ordered By: Kaleb Ramirez DS: Summary Time Spent with Patient providing and/or coordinating discharge services: Greater than 30 minutes Status at Discharge Functional status at discharge: independent ambulation Overall status at discharge: patient is not back to baseline Mental Status: mental status grossly normal Speech and Movement: speech and movement normal Mood: congruent mood Affect: normal affect Quality:SDOH Health Related Social Needs: Health related social needs details none mentioned Exam Narrative Exam Narrative: Well-appearing older female laying in bed in no acute distress, ANO x 4, heart regular rhythm, lungs good auscultation bilaterally, abdomen soft, nontender, nondistended Psych Mental Status: mental status grossly normal Speech and Movement: speech and movement normal Mood: congruent mood Affect: normal affect DS: Data Vitals/I&O Vitals and I&O: Vital Signs Temperature 36.6 C 05/06/25 16:03 Temperature Source Temporal Artery Scan 05/06/25 16:00 Pulse 57 L 05/06/25 20:01 Pulse 60 05/06/25 20:01 Respiratory Rate 12 05/06/25 20:01 Respiratory Effort Normal 05/05/25 17:09 Respiratory Depth Normal 05/05/25 17:09 Respiratory Pattern Normal 05/05/25 17:09 Blood Pressure 120/101 H 05/06/25 20:01 Blood Pressure Mean 109 05/06/25 20:01 Blood Pressure Position Sitting 05/05/25 17:09 Pulse Oximetry 95 05/06/25 20:01 Oxygen Delivery Method Room Air 05/06/25 16:24 Oxygen Flow Rate 0 05/06/25 16:24 Pain Level 2 05/06/25 12:04 Comment 2l 02 via nc initiated as patient's sats drifting to 87% while dozing. 05/06/25 12:04 Intake & Output 05/05/25 05/06/25 05/06/25 23:59 11:59 23:59 Intake Total 816 / 816 172.8 / 975.0 802.2 / 975.0 Output Total 150 / 150 525 / 1150 625 / 1150 Balance 666 / 666 -352.2 / -175.0 177.2 / -175.0 Weight 108.8 kg 108.3 kg Intake: IV 96 / 96 72.8 / 155.0 82.2 / 155.0 Oral 720 / 720 100 / 820 720 / 820 Output: Urine 150 / 150 525 / 1150 625 / 1150 Other: Urine Color Yellow Yellow Light Hannah Urine Appearance Clear Clear Clear Urine Odor None Normal Comment mixed with stool in commode Stool Size Moderate Stool Characteristics Formed Soft Brown Formed Brown Data Completed and Pending Labs on day of discharge: Labs from last 24 hours 05/06/25 05/06/25 05/05/25 11:39 05:16 22:04 WBC 9.50 RBC 4.10 Hgb 12.6 D Hct 37.5 MCV 92 MCH 30.7 MCHC 33.6 RDW 13.2 Plt Count 273 MPV 9.2 APTT 59.1 H 66.9 H 40.8 H Sodium 140 Potassium 4.1 Chloride 103 Carbon Dioxide 28.7 Anion Gap 8.3 BUN 26 H Creatinine 1.2 H Est GFR (CKD-EPI 2020) 52.80 Glucose 125 H Calcium 9.1 Troponin I 519 H* PFSH All Active Problems (Updated 05/05/25 @ 16:39 by Sandeep Smith MD) GERD (gastroesophageal reflux disease) (Chronic) Hypertension (Chronic) Acute non-ST elevation myocardial infarction (NSTEMI) (Acute) Hoarseness or changing voice (Acute) Eczema of both external ears (Acute) Cerumen impaction (Acute) Otorrhea of right ear (Acute) Left foot pain (Acute) Low vitamin B12 level (Acute) Bilateral hearing loss due to cerumen impaction (Acute) Skin cyst (Acute) Bilateral hearing loss due to cerumen impaction (Acute) Skin lesion (Acute) Earlobe lesion (Acute) Trochanteric bursitis, right hip (Acute) Hammer toe of left foot (Acute) Trigger thumb, right thumb (Acute) Injected 09/11/2021 Advance care planning (Acute) Vitamin D deficiency (Acute) Foot pain, bilateral (Acute) Encounter for screening colonoscopy (Acute) Encounter for annual physical exam (Acute) Snoring (Acute) Wet senile macular retinal degeneration (Acute) Herpes simplex (Acute) Herpes zoster (Acute 03/19/13) Onychomycosis (Chronic) Pain of left hip (Acute 07/25/17) 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) Carpal tunnel syndrome (Chronic 02/28/12) Cervical pain (neck) (Chronic 10/27/15) 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) Depressive disorder (Chronic 05/09/10) Essential hypertension (Chronic 11/13/13) Gout (Chronic 09/14/14) Hypothyroidism (Chronic 08/13/13) 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) Pilonidal cyst (Chronic 01/21/18) CHRONIC 02/20/18 Plantar fascia syndrome (Chronic 05/03/16) Primary malignant neoplasm of thyroid gland (Chronic 08/13/13) 08/30 THYROID U/S: NODULE papillary thyroid CA; S/P removal; now hypothyroid Smoker (Chronic) Tinea corporis (Chronic 07/14/15) Vaginal atrophy (Chronic 11/04/17) Medical History (Updated 05/05/25 @ 16:39 by Sandeep Smith MD) Sinus infection Cellulitis of left lower leg (09/02/16) Dysfunctional uterine bleeding (07/10/10) Ingrowing toenail (08/17/14) Left upper quadrant pain Rash of unknown cause (02/13/16) Abdominal pain, left upper quadrant Spasms; 01/27 Rib/Sternum films Neg Herpes simplex Onychomycosis toenails Dysfunctional uterine bleeding 07/10/10 Papillary thyroid carcinoma 08/25/13 Ingrown toenail 08/17/14 Rash of unknown cause 02/13/16 Cellulitis of left lower leg 09/02/16 Left hip pain 07/25/17 Annual physical exam (09/06/15) Chronic cystitis MULTIPLE CYSTS: AXILLA/LEGS/ETC. Herpes zoster (03/19/13) Malignant neoplasm of thyroid gland Surgical History History of eye surgery H/O surgical procedure right lobectomy; papillary ca; [place] [place] surgery Lobectomy (~08/2007) R LOBE-PUPILLARY CA; DR. FLEMING @ [facility] [place] Excision, Pilonidal Cyst (02/20/18) EYE Family History (Updated 05/26/24 @ 16:08 by Eri Chris) Mother , 77 Diabetes Essential hypertension Heart disease ANEURSYM X 6 Dementia Father , 67 Diabetes Essential hypertension Heart disease Hyperlipidemia Sister Diabetes Brother Diabetes Essential hypertension Depression Brother Diabetes Essential hypertension Social History (Updated 05/26/24 @ 16:08 by Eri Chris) Smoking/Tobacco Use Status: Current every day Tobacco Type: cigarettes Smoking packs per day: 0.5 Smoking cigarettes per day: 10.0 Years smoked: 38 Smoking pack-years: 19.00 Tobacco: How many years used: 39 Quit status: not considering quitting Second Hand Exposure: Yes Counseling given: provider counseling Smoking risk assessment performed?: Yes Alcohol Intake: former Drug use: Never Substance use type: does not use Details: occasional edible Adopted: No Caregiver/Support person: No Household members: spouse Housing: other Details: Mobile Home Communication Needs: None Education Level: high school Do you need help understanding health information?: Never current occupation: works packing eggs Pets and animals: Yes Pets and animals: dog(s) Sexually active: Yes Do you think of yourself as: straight/heterosexual Current gender identity: female What is your relationship status?: How often do you talk on the phone with friends or family?: three or more times per week How often do you get together with friends or relatives?: once per week Do you belong to any clubs or organized social groups?: yes Panel score (0-1 are the most socially isolated patients): 3 Binta/Hoahaoism: Restorationism Special binta needs: No Seatbelt use: always Helmet use: No Drive intox or ride w/intox furniture mover driver: No Firearms in home: Yes Firearms unloaded and locked: Yes Do you feel safe at home: Yes Do you feel safe in your relationship?: Yes Victim of physical abuse: No Victim of emotional abuse: No Victim of sexual abuse: No Would you like helpful sources: No Time Spent with Patient Time Spent with Patient: <45 minutes Time was spent: preparing to see the patient(eg.review tests), obtaining and/or reviewing separately otained hiistory, referring, communicating with other health home health care social worker, indepentently interpreting results and care coordination
== END 2025-05-06 22:14 | disposition short-term general hospital (02) | DRG 282 ==
LOC: ER 16:04 → ICU 16:29
PROVIDERS: Hospitalist; Admitting Provider Family Medicine; Emergency Provider Emergency Medicine; PCP Family Medicine; Responsible Provider Family Medicine; Visit Provider Family Medicine
DX: I21.4 Non-ST elevation (NSTEMI) myocardial infarction (principal); I10 Essential (primary) hypertension; K21.9 Gastro-esophageal reflux disease without esophagitis; E53.8 Deficiency of other specified B group vitamins; F17.210 Nicotine dependence, cigarettes, uncomplicated; E89.0 Postprocedural hypothyroidism; F32.A Depression, unspecified; B35.1 Tinea unguium; E55.9 Vitamin D deficiency, unspecified; Z85.850 Personal history of malignant neoplasm of thyroid; R51.9 Headache, unspecified
CPT/HCPCS: 00123; 36415; 80048; 80053; 83690; 85027; 93005; 96365; 99291; 71046; 83735; 83880; 84484; 85025; 85610; 85730; 93010; 99223; 99238; 99239; J1644; J2270

== ENCOUNTER 2025-05-24 02:19 | Outpatient (CLI) | payer MEDICAID, SELFPAY | END 2025-05-24 02:20 | disposition home or self-care (01) | LOC: RT 02:19 | PROVIDERS: PCP Family Medicine; Visit Provider Student in an Organized Health Care Education/Training Program | DX: G47.30 Sleep apnea, unspecified (principal) | CPT/HCPCS: 94762 ==

== ENCOUNTER 2025-05-24 11:00 | Outpatient (RCR) | payer MEDICAID, SELFPAY ==
--- NOTE | 2025-05-24 10:45 | RT.EKG_ITS ---
APPROVED REPORT Exam: Resting ECG Reason for Exam: baseline Patient Location: O HR:64 bpm ECG Measurements Heart Rate 64 AXIS AL 139 P -7 QRSd 89 QRS 47 QT 427 T 164 QTc 441 Conclusion Sinus rhythm...normal P axis, V-rate 50- 99 Anteroseptal infarct, age indeterminate...Q >35mS, T neg, V1-V2 Lateral leads are also involved...lat Q or ST-T abnormalities
== END 2025-05-24 23:59 | disposition home or self-care (01) ==
LOC: CR 11:00
PROVIDERS: PCP Family Medicine; Visit Provider Internal Medicine Cardiovascular Disease
DX: I21.4 Non-ST elevation (NSTEMI) myocardial infarction (principal); Z95.5 Presence of coronary angioplasty implant and graft; Z51.89 Encounter for other specified aftercare
CPT/HCPCS: S9472

== ENCOUNTER 2025-05-31 02:56 | Outpatient (CLI) | payer MEDICAID, SELFPAY ==
--- NOTE | 2025-05-31 08:15 | DI.RAD_ITS ---
Exam(s) XR HIP PELVIS ADULT BL EXAM: XR HIP PELVIS ADULT BL CLINICAL HISTORY: b/l hip pain, hip discomfort, M25.559. TECHNIQUE: 2D digital imaging was performed. COMPARISON: No exams were available for comparison FINDINGS: 3 views No evidence of pelvic nor hip fractures. No degenerative changes noted in the hips. No osseous lesions. Bone density normal. SI joints appear unremarkable. Calcific density immediately subjacent to the right ischial tuberosity may be related to prior avulsion injury of the hamstrings tendon at this level. IMPRESSION: No significant hip findings. Calcific density subjacent of the right ischial tuberosity may be related to prior hamstrings avulsion injury. DATA REPOSITORY: RADIATION DOSE DELIVERED:
== END 2025-05-31 03:16 ==
LOC: DI 02:56
PROVIDERS: PCP Family Medicine; Visit Provider Family Medicine
DX: M25.551 Pain in right hip (principal); M25.552 Pain in left hip
CPT/HCPCS: 73521

== ENCOUNTER 2025-06-16 13:00 | Outpatient (RCR) | payer MEDICAID, SELFPAY | END 2025-06-24 23:59 | disposition home or self-care (01) | LOC: CR 13:00 | PROVIDERS: PCP Family Medicine; Visit Provider Internal Medicine Cardiovascular Disease | DX: I21.4 Non-ST elevation (NSTEMI) myocardial infarction (principal); Z95.5 Presence of coronary angioplasty implant and graft; Z51.89 Encounter for other specified aftercare | CPT/HCPCS: S9472 ==

== ENCOUNTER 2025-06-30 02:20 | Outpatient (CLI) | payer MEDICAID, SELFPAY ==
[2025-06-30 13:05] LABS: HCT 38.4 % (36.0-46.0); HGB 13.0 g/dL (11.2-15.7); MCH 30.8 pg (27.0-33.0); MCHC 33.9 % (32.0-36.0); MCV 91 fL (80-95); MPV 9.1 fL (8.0-11.0); Platelet Count 333 10^3/uL (130-400); RBC 4.22 10^6/uL (3.93-5.22); RDW 12.8 % (11.7-14.6); RDW-SD 42.1 fL; WBC 9.45 10^3/uL (4.4-10.8)
[2025-06-30 13:08] LABS: ESR 20 mm/hr (0-30)
[2025-06-30 13:22] LABS: Hemoglobin A1C 6.7 % (<5.7)
[2025-06-30 13:37] LABS: ALT 29 U/L (14-59); AST 17 U/L (15-37); Albumin 4.2 g/dL (3.4-5.0); Alkaline Phosphatase 99 U/L (46-116); Anion Gap 11.9 mmol/L (3-11); BUN 25 mg/dL (7-18); Bilirubin, Total 0.5 mg/dL (0.2-1.0); CO2 27.1 mmol/L (21.0-32.0); Calcium 9.6 mg/dL (8.5-10.1); Chloride 103 mmol/L (98-107); Estimated GFR 52.80 (mL/min/1.73m2); Glucose 100 mg/dL (74-106); Potassium 4.3 mmol/L (3.5-5.1); Sodium 142 mmol/L (136-145); TSH (W/Ref FT4) 2.86 uIU/mL (0.36-3.74); Total Protein 7.8 g/dL (6.4-8.2)
[2025-06-30 13:38] LABS: C-Reactive Protein < 0.50 mg/dL (<or=0.5)
[2025-06-30 13:49] LABS: Calculated LDL 41 mg/dL (<100); Cholesterol 109 mg/dL (<200); HDL Cholesterol 38 mg/dL (>or=50); Triglyceride 150 mg/dL (<150)
[2025-06-30 23:01] LABS: Hepatitis C Ab w Rflx HCV PCR Negative (Negative)
== END 2025-06-30 02:21 | disposition home or self-care (01) ==
LOC: LBO 02:20
PROVIDERS: PCP Family Medicine; Visit Provider Family Medicine
DX: R51.9 Headache, unspecified (principal); E03.9 Hypothyroidism, unspecified; Z11.59 Encounter for screening for other viral diseases; I10 Essential (primary) hypertension; E11.9 Type 2 diabetes mellitus without complications; L03.311 Cellulitis of abdominal wall
CPT/HCPCS: 36415; 80053; 80061; 85027; 85652; 86803; 83036; 84443; 86140

== ENCOUNTER 2025-07-12 01:43 | Outpatient (CLI) | payer MEDICAID, SELFPAY ==
--- NOTE | 2025-07-12 06:15 | DI.MRI_ITS ---
Exam(s) MR BRAIN WO EXAM: MR BRAIN WO CLINICAL HISTORY: severe persistent headache on right side,family h/o aneurysm,z82.49 TECHNIQUE: Multiplanar multisequence MRI of the brain was performed. COMPARISON: No exams were available for comparison FINDINGS: CEREBRAL PARENCHYMA: There is no evidence of intracranial hemorrhage, mass effect, or shift of midline structures. There are no extra-axial fluid collections. Ventricles are not enlarged or shifted. There is no evidence of cerebellar tonsillar ectopia. There is no significant focal signal abnormality in the cerebellar hemispheres nor within the moi, midbrain, and thalami. There few nonspecific FLAIR bright sub cm foci of signal abnormality in the periventricular white matter, not associated with hemorrhage, surrounding edema, nor restricted diffusion. There is an additional focus of signal abnormality in the right para fall seen region, posteriorly, measuring 9 by 7 by 5 mm and exhibiting signs of microhemorrhage on SWI. 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 Cannot exclude small meningioma given its location. PITUITARY GLAND: No mass nor parasellar abnormality. No obvious abnormality in the cavernous sinuses. FLOW VOIDS: No obvious aneurysm PARANASAL SINUSES: There is a post inflammatory retention cyst in the right maxillary sinus which measures 1.9 cm AP by 1.5 cm wide by 1.6 cm craniocaudal. Not associated with a fluid level. No findings in the opposite-left maxillary sinus nor within the other paranasal sinuses ORBITS: No obvious findings. IMPRESSION: There is a 9 x 7 x 5 mm focus of signal abnormality in the posterior right parafalcine region, exhibiting some microhemorrhage signal on SWI. This finding is suspicious for a vascular malformation/cavernoma. Other additional nonspecific sub cm foci of FLAIR bright signal abnormality are also seen which are not associated with hemorrhage, surrounding edema and, nor restricted diffusion. Recommend follow-up MRI with contrast injection. DATA REPOSITORY:
== END 2025-07-12 02:03 ==
PROVIDERS: PCP Family Medicine; Visit Provider Family Medicine
DX: Z82.49 Family history of ischemic heart disease and other diseases of the circulatory system (principal); R51.9 Headache, unspecified; Z13.6 Encounter for screening for cardiovascular disorders
CPT/HCPCS: 70551

== ENCOUNTER 2025-07-14 02:23 | Outpatient (CLI) | payer MEDICAID, SELFPAY ==
--- NOTE | 2025-07-14 10:30 | DI.MRI_ITS ---
Exam(s) MR ANGIO BRAIN WO EXAM: MR ANGIO BRAIN WO CLINICAL HISTORY: vascular abnl on MRI,f/u abnl mri, r90.89,Q28.3 TECHNIQUE: This brain MRA study was performed on 1.5 gee unit with [id number] sequence. COMPARISON: MR MR BRAIN WO from 07/12/2025 MR MR BRAIN W from 07/14/2025 FINDINGS: ANTERIOR CIRCULATION: Both internal carotid arteries are patent in the skull base-carotid canals as well as within the cavernous sinuses. The supraclinoid aspects of the internal carotid arteries are patent and nonaneurysmal. Both A1 segments are patent as are the anterior cerebral arteries and there is no evidence of aneurysm at the level the anterior communicating artery. Both middle cerebral arteries are patent with no evidence of intraluminal thrombus nor tight stenoses. No aneurysms evident in these vessels. POSTERIOR CIRCULATION: The basilar artery is formed at the skull base by contribution from both vertebral arteries. The basilar artery ascends without significant stenosis. Distally it gives off superior cerebellar arteries and above this level terminates as patent bilateral posterior cerebral arteries. There is no aneury sm at the tip of the basilar artery nor elsewhere in the [id number]. IMPRESSION: 1. Patent intracranial arteries 2. No aneurysms evident. . See separate contrast infused brain MRI dictation. DATA REPOSITORY:
--- NOTE | 2025-07-14 10:30 | DI.MRI_ITS ---
Exam(s) MR BRAIN W EXAM: MR BRAIN W CLINICAL HISTORY: vascular abnl on MRI,f/u abnl brain mri,Q28.3,r90.89. TECHNIQUE: Multiplanar multisequence MRI of the brain was performed. CONTRAST MATERIAL: IV Contrast: ML of Dotarem contrast administered. COMPARISON: CT HEAD WITHOUT CONTRAST from 03/03/2013 MR MR BRAIN WO from 07/12/2025 MR MR ANGIO BRAIN WO from 07/14/2025 FINDINGS: VENTRICLES AND EXTRA AXIAL SPACES: Normal in size and morphology for the patient's age. HEMORRHAGE: None. CEREBRAL PARENCHYMA: No focus of restricted diffusion to suggest acute infarct. Previously questioned right parafalcine posterior parietal lesion shows slight curvilinear enhancement, likely representing a small vascular malformation. No findings to suggest a meningioma. No associated edema. BRAINSTEM/CEREBELLUM: Normal. CALVARIUM: Normal. VISUALIZED PARANASAL SINUSES/MASTOIDS: Mucous retention cyst in right maxillary sinus. Orbits: Unremarkable. Pituitary: Not enlarged. Vasculature: Normal flow voids. IMPRESSION: Small lesion seen in the right posterior parafalcine region likely represents a small developmental venous anomaly or other vascular malformation. DATA REPOSITORY:
[2025-07-14] MEDS: Normal Saline Flush 10 ML SYR IVP (13:03)
[2025-07-14] MEDS: Gadoterate meglumine 20 ML SYRINGE IVP (13:04)
== END 2025-07-14 02:43 ==
PROVIDERS: PCP Family Medicine; Visit Provider Family Medicine
DX: Q28.3 Other malformations of cerebral vessels (principal); R90.89 Other abnormal findings on diagnostic imaging of central nervous system
CPT/HCPCS: 70544; 70552